=== PATIENT | female | born 1990 | race Caucasian/White ===

== ENCOUNTER 2020-02-27 06:06 | Emergency (ER) | payer OTHER, SELFPAY ==
[2020-02-27] VITALS (21 sets, daily range): BP systolic 103–137; BP diastolic 61–91; PULSE 67–115; RESP 15–24; TEMP 36.4; O2SAT 94–100; BMI 23.1
--- NOTE | 2020-02-27 06:24 | ED_ITS ---
HPI - Back Pain/Injury <Mago Schmitt MD - Last Filed: 03/15/20 07:32> General Chief Complaint: Back Pain/Injury Stated Complaint: new , pain right side back Time Seen by Provider: 02/27/20 06:14 Source: patient History of Present Illness HPI Narrative: 29yo presents with right sided flank to right lower quadrant pain. Approximately 2 weeks ago she started having some mild dysuria was concerned she was developing a UTI and began drinking quite a bit of water. Symptoms seem to demarco. One week ago she found out that she was and based on LMP is about 5 weeks currently. Over this last week she has had recurrent episodes of nausea and intermittent episodes of dysuria associated with dark brown urine with episodes of normal pain-free urination in between. At 2:00 a.m. she was woken from sleep with severe pain in the right flank. She states that she has had kidney stones before and will this pain is severe it is not as severe as prior renal colic has been. She denies fevers, chills, cough, chest pain, palpitations, diarrhea, skin rashes or headaches. Related Data Home Medications Medication Instructions Recorded Confirmed levothyroxine 100 mcg PO DAILY 02/29/20 02/29/20 Previous Rx's Medication Instructions Recorded oxycodone-acetaminophen [Percocet] 1 tab PO Q6H PRN #14 tab 02/27/20 acetaminophen 650 mg PO Q4HR PRN #14 tab 03/02/20 ondansetron HCl [Zofran] 4 mg PO Q8H #20 tab 03/02/20 oxycodone 5 mg PO Q6H PRN #20 cap 03/02/20 Allergies Allergy/AdvReac Type Severity Reaction Status Date / Time No Known Drug Allergies Allergy Verified 03/01/20 15:57 Review of Systems <Mago Schmitt MD - Last Filed: 03/15/20 07:32> Review of Systems Narrative: Remainder of review of systems including constitutional, ENT, c ardiovascular, respiratory, GI, , musculoskeletal, skin, neurologic and psychiatric systems reviewed and are unremarkable except as noted in HPI. Patient History <Mago Schmitt MD - Last Filed: 03/15/20 07:32> Medical History delivery delivered (Acute) Renal stones (Acute) Vaginal delivery (Acute) Surgical History delivery delivered (Acute) Social History household members: spouse and children Smoking Status: Never smoker alcohol intake: former Smoking Status: Never smoker Substance Use Type: does not use Exam <Mago Schmitt MD - Last Filed: 03/15/20 07:32> Narrative Exam Narrative: General: Healthy appearing, in moderate distress, lying on her left side massaging her right flank. Able to give a complete and coherent history. Well-nourished well-developed HEENT: Moist mucous membranes, normal sclera with reactive pupils, Respiratory: Lungs are clear to auscultation, no wheezing no rales no rhonchi. Full and symmetrical air movement Cardiac: Regular rate and rhythm no murmurs no bruits Abdomen: Soft mildly tender mid right side into the right lower quadrant without rebound or guarding good bowel tones, right flank pain Skin: Warm and dry, no rashes Neurologic: Grossly neurologically intact with no obvious asymmetries or abnormalities Extremities: No trauma, well perfused Psych: Cooperative, appropriate insight and affect Initial Vital Signs Initial Vital Signs: Vital Signs Temperature 97.6 F 02/27/20 06:16 Pulse Rate 115 H 02/27/20 06:16 Respiratory Rate 15 02/27/20 06:16 Blood Pressure 137/91 H 02/27/20 06:16 Pulse Oximetry 100 02/27/20 06:16 <Brandee Boyer DO - Last Filed: 02/27/20 16:28> Initial Vital Signs Initial Vital Signs: Vital Signs Temperature 97.6 F 02/27/20 06:16 Pulse Rate 115 H 02/27/20 06:16 Respiratory Rate 15 02/27/20 06:16 Blood Pressure 137/91 H 02/27/20 06:16 Pulse Oximetry 100 02/27/20 06:16 Course <Mago Schmitt MD - Last Filed: 03/15/20 07:32> Orders Ordered: Discontinued Medications Acetaminophen (Tylenol) 975 mg PO NOW ONE Stop: 02/27/20 07:54 Last Admin: 02/27/20 07:58 Dose: 975 mg Documented by: DANNI Hydromorphone HCl (Dilaudid) 0.5 mg IV NOW ONE Stop: 02/27/20 06:21 Last Admin: 02/27/20 06:31 Dose: 0.5 mg Documented by: DEANDRE Hydromorphone HCl (Dilaudid) 1 mg IV NOW ONE Stop: 02/27/20 06:46 Last Admin: 02/27/20 06:52 Dose: 1 mg Documented by: DEANDRE Hydromorphone HCl (Dilaudid) 1 mg IV NOW ONE Stop: 02/27/20 07:23 Last Admin: 02/27/20 07:30 Dose: 1 mg Documented by: DANNI Sodium Chloride (Normal Saline 0.9%) 1,000 mls @ 1,000 mls/hr IV BOLUS ONE Stop: 02/27/20 07:19 Last Infusion: 02/27/20 08:35 Dose: 0 mls/hr Documented by: Admin: 02/27/20 06:31 Dose: 1,000 mls/hr Documented by: DEANDRE Sodium Chloride (Normal Saline 0.9%) 1,000 mls @ 1,000 mls/hr IV BOLUS ONE Stop: 02/27/20 08:53 Last Admin: 02/27/20 10:11 Dose: Not Given Documented by: DANNI Metoclopramide HCl (Reglan) 10 mg IV NOW ONE Stop: 02/27/20 06:21 Last Admin: 02/27/20 06:30 Dose: 10 mg Documented by: DEANDRE Morphine Sulfate (Morphine) 4 mg IV NOW ONE Stop: 02/27/20 09:16 Last Admin: 02/27/20 09:32 Dose: 4 mg Documented by: DANNI Morphine Sulfate (Morphine) 4 mg IV NOW ONE Stop: 02/27/20 10:37 Last Admin: 02/27/20 10:46 Dose: 4 mg Documented by: DANNI Morphine Sulfate (Morphine) 4 mg IV NOW ONE Stop: 02/27/20 12:05 Last Admin: 02/27/20 12:26 Dose: 4 mg Documented by: SILVESTRE Morphine Sulfate (Morphine) 6 mg 0.1 mg/kg (6 mg) IV NOW ONE Stop: 02/27/20 13:14 Last Admin: 02/27/20 13:18 Dose: 6 mg Documented by: SILVESTRE Ondansetron HCl (Zofran) 4 mg IV NOW ONE Stop: 02/27/20 09:16 Last Admin: 02/27/20 09:31 Dose: 4 mg Documented by: DANNI Ondansetron HCl (Zofran) 4 mg IV NOW ONE Stop: 02/27/20 12:25 Last Admin: 02/27/20 12:26 Dose: 4 mg Documented by: SILVESTRE Vital Signs Vital signs: Vital Signs - 8 hr 02/27/20 09:20 02/27/20 09:39 02/27/20 09:40 Pulse Rate 72 75 76 Respiratory Rate 18 Blood Pressure 107/62 107/62 Pulse Oximetry 95 95 95 02/27/20 10:00 02/27/20 10:30 02/27/20 11:00 Pulse Rate 76 67 77 Respiratory Rate Blood Pressure Pulse Oximetry 96 96 99 02/27/20 11:30 02/27/20 12:00 02/27/20 12:30 Pulse Rate 81 70 81 Respiratory Rate Blood Pressure Pulse Oximetry 100 100 100 02/27/20 13:18 02/27/20 13:21 02/27/20 13:30 Pulse Rate 83 78 70 Respiratory Rate 17 Blood Pressure 103/66 116/68 109/63 Pulse Oximetry 99 100 94 02/27/20 14:00 Pulse Rate 75 Respiratory Rate Blood Pressure 107/65 Pulse Oximetry 99 <Brandee Boyer, - Last Filed: 02/27/20 16:28> Orders Ordered: Discontinued Medications Acetaminophen (Tylenol) 975 mg PO NOW ONE Stop: 02/27/20 07:54 Last Admin: 02/27/20 07:58 Dose: 975 mg Documented by: DANNI Hydromorphone HCl (Dilaudid) 0.5 mg IV NOW ONE Stop: 02/27/20 06:21 Last Admin: 02/27/20 06:31 Dose: 0.5 mg Documented by: DEANDRE Hydromorphone HCl (Dilaudid) 1 mg IV NOW ONE Stop: 02/27/20 06:46 Last Admin: 02/27/20 06:52 Dose: 1 mg Documented by: DEANDRE Hydromorphone HCl (Dilaudid) 1 mg IV NOW ONE Stop: 02/27/20 07:23 Last Admin: 02/27/20 07:30 Dose: 1 mg Documented by: DANNI Sodium Chloride (Normal Saline 0.9%) 1,000 mls @ 1,000 mls/hr IV BOLUS ONE Stop: 02/27/20 07:19 Last Infusion: 02/27/20 08:35 Dose: 0 mls/hr Documented by: Admin: 02/27/20 06:31 Dose: 1,000 mls/hr Documented by: DEANDRE Sodium Chloride (Normal Saline 0.9%) 1,000 mls @ 1,000 mls/hr IV BOLUS ONE Stop: 02/27/20 08:53 Last Admin: 02/27/20 10:11 Dose: Not Given Documented by: DANNI Metoclopramide HCl (Reglan) 10 mg IV NOW ONE Stop: 02/27/20 06:21 Last Admin: 02/27/20 06:30 Dose: 10 mg Documented by: DEANDRE Morphine Sulfate (Morphine) 4 mg IV NOW ONE Stop: 02/27/20 09:16 Last Admin: 02/27/20 09:32 Dose: 4 mg Documented by: DANNI Morphine Sulfate (Morphine) 4 mg IV NOW ONE Stop: 02/27/20 10:37 Last Admin: 02/27/20 10:46 Dose: 4 mg Documented by: DANNI Morphine Sulfate (Morphine) 4 mg IV NOW ONE Stop: 02/27/20 12:05 Last Admin: 02/27/20 12:26 Dose: 4 mg Documented by: SILVESTRE Morphine Sulfate (Morphine) 6 mg 0.1 mg/kg (6 mg) IV NOW ONE Stop: 02/27/20 13:14 Last Admin: 02/27/20 13:18 Dose: 6 mg Documented by: SILVESTRE Ondansetron HCl (Zofran) 4 mg IV NOW ONE Stop: 02/27/20 09:16 Last Admin: 02/27/20 09:31 Dose: 4 mg Documented by: DANNI Ondansetron HCl (Zofran) 4 mg IV NOW ONE Stop: 02/27/20 12:25 Last Admin: 02/27/20 12:26 Dose: 4 mg Documented by: SILVESTRE Consultations Consultation #1: Dr. Jones MALCOLM up dated on patient symptoms requesting bedside evaluation. She will be down shortly Time: 10:31 Vital Signs Vital signs: Vital Signs - 8 hr 02/27/20 09:20 02/27/20 09:39 02/27/20 09:40 Pulse Rate 72 75 76 Respiratory Rate 18 Blood Pressure 107/62 107/62 Pulse Oximetry 95 95 95 02/27/20 10:00 02/27/20 10:30 02/27/20 11:00 Pulse Rate 76 67 77 Respiratory Rate Blood Pressure Pulse Oximetry 96 96 99 02/27/20 11:30 02/27/20 12:00 02/27/20 12:30 Pulse Rate 81 70 81 Respiratory Rate Blood Pressure Pulse Oximetry 100 100 100 02/27/20 13:18 02/27/20 13:21 02/27/20 13:30 Pulse Rate 83 78 70 Respiratory Rate 17 Blood Pressure 103/66 116/68 109/63 Pulse Oximetry 99 100 94 02/27/20 14:00 Pulse Rate 75 Respiratory Rate Blood Pressure 107/65 Pulse Oximetry 99 MDM - Back Pain/Injury <Mago Schmitt MD - Last Filed: 03/15/20 07:32> Lab Data Result diagrams: 02/27/20 06:30 02/27/20 06:30 Labs: Lab Results 02/27/20 02/27/20 02/27/20 Range/Units 06:30 06:30 06:30 WBC 6.2 (4.5-11.0) X10^3/uL RBC 4.43 (4.0-5.2) X10^6/uL Hgb 13.5 (12.0-16.0) g/dL Hct 40.3 (36-46) % MCV 90.9 (80-100) fL MCH 30.6 (26-34) PG MCHC 33.6 (30-36) % RDW 13.1 (11.6-14.8) % Plt Count 213 (150-400) X10^3/uL Neut % (Auto) 55.2 (50-75) % Lymph % (Auto) 35.3 (25-40) % [place] % (Auto) 6.2 (3-14) % Eos % (Auto) 2.6 (2-4) % Baso % (Auto) 0.7 (0-2) % Neut # (Auto) 3400 (8925-3456) /uL Lymph # (Auto) 2200 (4324-8486) /uL [place] # (Auto) 400 (0-900) /uL Eos # (Auto) 200 (0-450) /uL Baso # (Auto) 0 (0-100) /uL Sodium 136 L (137-145) mmol/L Potassium 3.6 (3.4-5.1) mmol/L Chloride 108 H (98-107) mmol/L Carbon Dioxide 20 L (22-32) mmol/L BUN 9 (7-17) mg/dL Creatinine 0.58 (0.52-1.04) mg/dL Estimated GFR > 60.0 (>60) mL/min BUN/Creatinine Ratio 15.5 (6-22) Glucose 91 (70-100) mg/dL Calcium 9.6 (8.4-10.2) mg/dL Total Bilirubin 0.4 (0.2-1.3) mg/dL AST 20 (14-36) IU/L ALT 9 (<35) IU/L Alkaline Phosphatase 33 L (38-126) U/L Total Protein 6.8 (6.3-8.2) g/dL Albumin 4.2 (3.5-5.0) g/dL Globulin 2.6 (1.7-4.1) g/dL Albumin/Globulin Ratio 1.6 (1.0-2.8) Lipase (23-300) U/L HCG, Quant 946.5 mIU/mL Blood Type 02/27/20 02/27/20 Range/Units 06:30 14:03 WBC (4.5-11.0) X10^3/uL RBC (4.0-5.2) X10^6/uL Hgb (12.0-16.0) g/dL Hct (36-46) % MCV (80-100) fL MCH (26-34) PG MCHC (30-36) % RDW (11.6-14.8) % Plt Count (150-400) X10^3/uL Neut % (Auto) (50-75) % Lymph % (Auto) (25-40) % [place] % (Auto) (3-14) % Eos % (Auto) (2-4) % Baso % (Auto) (0-2) % Neut # (Auto) (8855-9581) /uL Lymph # (Auto) (1900-7110) /uL [place] # (Auto) (0-900) /uL Eos # (Auto) (0-450) /uL Baso # (Auto) (0-100) /uL Sodium (137-145) mmol/L Potassium (3.4-5.1) mmol/L Chloride (98-107) mmol/L Carbon Dioxide (22-32) mmol/L BUN (7-17) mg/dL Creatinine (0.52-1.04) mg/dL Estimated GFR (>60) mL/min BUN/Creatinine Ratio (6-22) Glucose (70-100) mg/dL Calcium (8.4-10.2) mg/dL Total Bilirubin (0.2-1.3) mg/dL AST (14-36) IU/L ALT (<35) IU/L Alkaline Phosphatase (38-126) U/L Total Protein (6.3-8.2) g/dL Albumin (3.5-5.0) g/dL Globulin (1.7-4.1) g/dL Albumin/Globulin Ratio (1.0-2.8) Lipase 65 (23-300) U/L HCG, Quant mIU/mL Blood Type O Positive Urine Dip Bedside Urine Glucose Negative Bedside Urine Bilirubin - Negative Bedside Urine Ketone + 15 Urine Specific [place] 1.010 Bedside Urine Occult Blood - Negative Bedside Urine pH 8.5 Bedside Urine Protein - Negative Bedside Urine Urobilinogen - Negative Bedside Urine Nitrite - Negative Bedside Urine Leukocytes - Negative Esterase <Brandee Boyer, - Last Filed: 02/27/20 16:28> Lab Data Attestation: I reviewed the patient's lab results. Labs: Lab Results 02/27/20 02/27/20 02/27/20 Range/Units 06:30 06:30 06:30 WBC 6.2 (4.5-11.0) X10^3/uL RBC 4.43 (4.0-5.2) X10^6/uL Hgb 13.5 (12.0-16.0) g/dL Hct 40.3 (36-46) % MCV 90.9 (80-100) fL MCH 30.6 (26-34) PG MCHC 33.6 (30-36) % RDW 13.1 (11.6-14.8) % Plt Count 213 (150-400) X10^3/uL Neut % (Auto) 55.2 (50-75) % Lymph % (Auto) 35.3 (25-40) % [place] % (Auto) 6.2 (3-14) % Eos % (Auto) 2.6 (2-4) % Baso % (Auto) 0.7 (0-2) % Neut # (Auto) 3400 (0406-9146) /uL Lymph # (Auto) 2200 (5258-0227) /uL [place] # (Auto) 400 (0-900) /uL Eos # (Auto) 200 (0-450) /uL Baso # (Auto) 0 (0-100) /uL Sodium 136 L (137-145) mmol/L Potassium 3.6 (3.4-5.1) mmol/L Chloride 108 H (98-107) mmol/L Carbon Dioxide 20 L (22-32) mmol/L BUN 9 (7-17) mg/dL Creatinine 0.58 (0.52-1.04) mg/dL Estimated GFR > 60.0 (>60) mL/min BUN/Creatinine Ratio 15.5 (6-22) Glucose 91 (70-100) mg/dL Calcium 9.6 (8.4-10.2) mg/dL Total Bilirubin 0.4 (0.2-1.3) mg/dL AST 20 (14-36) IU/L ALT 9 (<35) IU/L Alkaline Phosphatase 33 L (38-126) U/L Total Protein 6.8 (6.3-8.2) g/dL Albumin 4.2 (3.5-5.0) g/dL Globulin 2.6 (1.7-4.1) g/dL Albumin/Globulin Ratio 1.6 (1.0-2.8) Lipase (23-300) U/L HCG, Quant 946.5 mIU/mL Blood Type 02/27/20 02/27/20 Range/Units 06:30 14:03 WBC (4.5-11.0) X10^3/uL RBC (4.0-5.2) X10^6/uL Hgb (12.0-16.0) g/dL Hct (36-46) % MCV (80-100) fL MCH (26-34) PG MCHC (30-36) % RDW (11.6-14.8) % Plt Count (150-400) X10^3/uL Neut % (Auto) (50-75) % Lymph % (Auto) (25-40) % [place] % (Auto) (3-14) % Eos % (Auto) (2-4) % Baso % (Auto) (0-2) % Neut # (Auto) (4969-4041) /uL Lymph # (Auto) (5934-8233) /uL [place] # (Auto) (0-900) /uL Eos # (Auto) (0-450) /uL Baso # (Auto) (0-100) /uL Sodium (137-145) mmol/L Potassium (3.4-5.1) mmol/L Chloride (98-107) mmol/L Carbon Dioxide (22-32) mmol/L BUN (7-17) mg/dL Creatinine (0.52-1.04) mg/dL Estimated GFR (>60) mL/min BUN/Creatinine Ratio (6-22) Glucose (70-100) mg/dL Calcium (8.4-10.2) mg/dL Total Bilirubin (0.2-1.3) mg/dL AST (14-36) IU/L ALT (<35) IU/L Alkaline Phosphatase (38-126) U/L Total Protein (6.3-8.2) g/dL Albumin (3.5-5.0) g/dL Globulin (1.7-4.1) g/dL Albumin/Globulin Ratio (1.0-2.8) Lipase 65 (23-300) U/L HCG, Quant mIU/mL Blood Type O Positive Urine Dip Bedside Urine Glucose Negative Bedside Urine Bilirubin - Negative Bedside Urine Ketone + 15 Urine Specific [place] 1.010 Bedside Urine Occult Blood - Negative Bedside Urine pH 8.5 Bedside Urine Protein - Negative Bedside Urine Urobilinogen - Negative Bedside Urine Nitrite - Negative Bedside Urine Leukocytes - Negative Esterase Imaging Data US - OB: Radiologist's Impression: PROCEDURE: US PELVIC COMPLETE INDICATIONS: R flank, RLQ pain. suspected 5 week pg, h/o renal stones TECHNIQUE: Real-time scanning was performed of the pelvic organs, with image documentation. Additional endovaginal scanning was necessary due to incomplete visualization of the adnexal and endometrial structures by transabdominal scanning. COMPARISON: None. FINDINGS: Transabdominal scanning: Anteverted uterus with fundal fluid collection. The uterus measures 9.7 x 5.0 x 6.6 cm. Endovaginal scanning: Uterus: There is a tiny rounded intrauterine fluid collection measuring 4.1 mm which would correspond to of five week one day gestation. There may be a yolk sac pre sent. A pole was not seen. There is, however a large surrounding subchorionic hemorrhage encompassing the entire sac circumference. The cervix appears grossly closed. Ovaries: The right ovary measures 3.6 x 2.4 x 3.8 cm and contains a 2.7 cm peripherally vascular dominant follicle, likely a corpus luteum. The left ovary measures 2.8 x 2.2 x 2.1 cm and has a normal echotexture. IMPRESSION: 1. There is a tiny intrauterine fluid collection which would correspond to a five week one day gestation, however a pole is not identified. 2. Large subchorionic hemorrhage surrounding the anterior gestational sac. 3. Right ovarian corpus luteum. Dictated by: Judy Bardales M.D. on 02/27/2020 at 8:07 Approved by: Judy Bardales M.D. on 02/27/2020 at 8:16 US - abdomen: Radiologist's Impression: PROCEDURE: US ABDOMEN LIMITED INDICATIONS: RUQ PAIN TECHNIQUE: Real-time focused scanning was performed of the abdomen, with image documentation. COMPARISON: MR, MR ABD WO CON, 02/28/2016, 10:14. [facility], US RENAL, 02/29/2016, 9:45. FINDINGS: Normal appearance and size of the liver, normal gallbladder appearance. Adjacent bile ducts are normal in caliber, the pancreas visualized appears normal. No hydronephrosis or nephrolithiasis seen. IMPRESSION: Normal limited right upper quadrant ultrasound. Dictated by: Antione Castellon M.D. on 02/27/2020 at 9:43 MR Abdomen: Radiologist's Impression: PROCEDURE: MR ABDOMEN PELVIS WO CON COMPARISON: [facility], , US PELVIC COMPLETE, 02/27/2020, 8:22. INDICATIONS: right sided pain 5 weeks FINDINGS: There is a normal, retrocecal appendix measuring up to 6 mm without periappendiceal fat stranding or fluid. Small amount of simple fluid is present throughout the low pelvis. Dominant follicle is present on the right ovary measuring 1.9 cm. The left ovary is normal. There is thickening of the uterine endometrium, slight distension of the endometrial cavity with proteinaceous fluid, and a probable tiny intrauterine gestational sac. The solid organs of the upper abdomen demonstrate normal morphology and signal. The gallbladder and biliary system have a normal appearance. The ureters are nondilated. The stomach and bowel loops are normal. No areas of intraperitoneal inflammation. The vasculature is normal caliber. No lymphadenopathy. The urinary bladder is normal in the distal ureters are nondistended. There is normal marrow signal. Incidental note made of small posterior disc protrusion at the L5-S1 level. IMPRESSION: 1. Normal appendix. 2. Probable intrauterine gestational sac with a moderate amount of surrounding proteinaceous fluid. Findings consistent with threatened early . 3. Physiologic pelvic fluid and right ovarian corpus luteum. 4. No evidence of other acute process in the abdomen or pelvis identified. Dictated by: Judy Bardales M.D. on 02/27/2020 at 12:08 Approved by: Judy Bardales M.D. on 02/27/2020 at 12:26 [facility] Narrative Medical decision making narrative: Patient signed out to me by Dr. Carter I have seen evaluated patient myself. She appears quite uncomfortable. She is tender in the right upper quadrant with positive Mcdonald sign and also right flank area. She is given another mg of Dilaudid but it does not seem to help with her pain. She is given Tylenol. Ultrasound still pending. Pelvic ultrasound shows a large chorionic hemorrhage. However she does have some right upper quadrant pain and right flank pain and pain seems out of proportion she has had multiple doses of narcotic medications and it is still on controlled. Have discussed case with OBGYN Dr. gutierres who has been into the ED to see and evaluate patient. She states that there may be impending miscarriage which is causing significant pain however pain in the right flank and right upper quadrant is abnormal. Initially patient was hesitant to get MR, consent at [facility] is outdated and will be changed it states that there is risk due to heat in the 1st trimester so she did not want the MRI. However multiple studies have indicated that it is safe. Concern is patient is having significant pain not all consistent with subchorionic hemorrhage. Questionable appendicitis however she has no leukocytosis or fever in this seems to have gotten worse suddenly, story does not quite fit acute appendicitis. She has no hydronephrosis on her ultrasound. MRI returns with no appendicitis or other abnormality. Pain is likely from large subchorionic hemorrhage as previously discussed. I have given the patient option of staying in the hospital for pain control due to the new says the pain medications she received however she would like to go home. She is likely to have a large amount of bleeding once spotting starts. I discussed all findings with the patient and , Education has been performed regarding treatment plan, diagnosis, warning signs and symptoms and all concerns have been addressed. Verbally agree with and understood all of the above. Discharge Plan Departure Patient Disposition: Home Clinical Impression: Subchorionic hemorrhage in first trimester Qualifiers: Fetus number: single or unspecified fetus Qualified Code(s): O41.8X10 - Other specified disorders of amniotic fluid and membranes, first trimester, not applicable or unspecified Discharge Date/Time: 02/27/20 14:29 Instructions: DI for Abdominal Pain -- Early Activity Restrictions/Additional Instructions: *You have been diagnosed with large subchorionic hemorrhage *What to do: You are at risk to miscarry and have quite a large amount of bleeding. Try our best to manage pain at home may try heating pad or ice also position may help. *Continue to take medications as directed Percocet 1 tablet every 4 hours or 2 tablets every 6 hours *Follow up with your primary care provider in 2-3 days *Return to ER if you should have pain not controlled persistent vomiting, fever heavy bleeding more than 1 pad an hour or any new, worsening or concerning symptoms CONTROLLED SUBSTANCE DISCHARGE (Narcotoic/benzodiazepine/Flexeril/Phenergan) 1. You have been prescribed narcotic medications, it does have acetaminophen/Tylenol/paracetamol in it so do not take extra Tylenol or Tylenol containing products TRAMADOL DOES NOT CONTAIN TYLENOL 2. Please understand that we cannot provide further refills of narcotics, benzodiazepines or controlled substances through the ED and her pain management will need to be through your provider. 3. While on these medications you cannot drive or operate heavy machinery. 4. You cannot sign legal documents or perform any duties such as this. 5. As long as you're taking opiate pain medications he should also be taking a stool softener such as Colace, Dulcolax, MiraLAX or prune juice, to help avoid constipation. Prescriptions: New oxycodone-acetaminophen [Percocet] 7.5-325 mg tablet 1 tab PO Q6H PRN (Reason: pain) Qty: 14 RF: 0 No Action levothyroxine 100 mcg tablet 100 mcg PO DAILY RF: 0 acetaminophen 325 mg Tablet 650 mg PO Q4HR PRN (Reason: Fever/Mild Pain (1-3)) Qty: 14 RF: 0 oxycodone 5 mg capsule 5 mg PO Q6H PRN (Reason: pain) Qty: 20 RF: 0 ondansetron HCl [Zofran] 4 mg tablet 4 mg PO Q8H Qty: 20 RF: 0 Referrals: Linnea Gutierres MD [Physician] -
[2020-02-27] MEDS: METOCLOPRAMIDE 10 MG/2 ML INJ IV (06:30)
[2020-02-27] MEDS: HYDROMORPHONE 0.5 MG INJ IV (06:31)
[2020-02-27] MEDS: SODIUM CHLORIDE 0.9% 1,000 ML 1000 ML IV ×2 (06:31→08:36)
--- NOTE | 2020-02-27 06:33 | DI.US.S_ITS ---
PROCEDURE: US ABDOMEN LIMITED INDICATIONS: RUQ PAIN TECHNIQUE: Real-time focused scanning was performed of the abdomen, with image documentation. COMPARISON: MR, MR ABD WO CON, 02/28/2016, 10:14. [facility], US, US RENAL, 02/29/2016, 9:45. FINDINGS: Normal appearance and size of the liver, normal gallbladder appearance. Adjacent bile ducts are normal in caliber, the pancreas visualized appears normal. No hydronephrosis or nephrolithiasis seen. IMPRESSION: Normal limited right upper quadrant ultrasound. Dictated by: Antione Castellon M.D. on 02/27/2020 at 9:43 Approved by: Antione Castellon M.D. on 02/27/2020 at 9:45
--- NOTE | 2020-02-27 06:33 | DI.US.S_ITS ---
PROCEDURE: US PELVIC COMPLETE INDICATIONS: R flank, RLQ pain. suspected 5 week pg, h/o renal stones TECHNIQUE: Real-time scanning was performed of the pelvic organs, with image documentation. Additional endovaginal scanning was necessary due to incomplete visualization of the adnexal and endometrial structures by transabdominal scanning. COMPARISON: None. FINDINGS: Transabdominal scanning: Anteverted uterus with fundal fluid collection. The uterus measures 9.7 x 5.0 x 6.6 cm. Endovaginal scanning: Uterus: There is a tiny rounded intrauterine fluid collection measuring 4.1 mm which would correspond to of five week one day gestation. There may be a yolk sac present. A pole was not seen. There is, however a large surrounding subchorionic hemorrhage encompassing the entire sac circumference. The cervix appears grossly closed. Ovaries: The right ovary measures 3.6 x 2.4 x 3.8 cm and contains a 2.7 cm peripherally vascular dominant follicle, likely a corpus luteum. The left ovary measures 2.8 x 2.2 x 2.1 cm and has a normal echotexture. IMPRESSION: 1. There is a tiny intrauterine fluid collection which would correspond to a five week one day gestation, however a pole is not identified. 2. Large subchorionic hemorrhage surrounding the anterior gestational sac. 3. Right ovarian corpus luteum. Dictated by: Judy Bardales M.D. on 02/27/2020 at 8:07 Approved by: Judy Bardales M.D. on 02/27/2020 at 8:16
[2020-02-27 06:37] LABS: Add Manual Diff / Slide Review NO; Basophils Absolute Auto 0 /uL (0-100); Basophils Percent Auto 0.7 % (0-2); Eosinophils Absolute Auto 200 /uL (0-450); Eosinophils Percent Auto 2.6 % (2-4); Hematocrit 40.3 % (36-46); Hemoglobin 13.5 g/dL (12.0-16.0); Lymphocytes Absolute Auto 2200 /uL (1100-4500); Lymphocytes Percent Auto 35.3 % (25-40); Mean Corpuscular HGB Conc 33.6 % (30-36); Mean Corpuscular Hemoglobin 30.6 PG (26-34); Mean Corpuscular Volume 90.9 fL (80-100); Monocytes Absolute Auto 400 /uL (0-900); Monocytes Percent Auto 6.2 % (3-14); Neutrophils Absolute Auto 3400 /uL (1500-7000); Neutrophils Percent Auto 55.2 % (50-75); Platelet Count 213 X10^3/uL (150-400); Red Blood Cell Count 4.43 X10^6/uL (4.0-5.2); Red Cell Distribution Width 13.1 % (11.6-14.8); White Blood Cell Count 6.2 X10^3/uL (4.5-11.0)
[2020-02-27 06:46] LABS: Alanine Aminotransferase 9 IU/L (<35); Albumin 4.2 g/dL (3.5-5.0); Albumin Globulin Ratio 1.6 (1.0-2.8); Alkaline Phosphatase 33 U/L (38-126); Aspartate Aminotransferase 20 IU/L (14-36); BUN Creatinine Ratio 15.5 (6-22); Bilirubin Total 0.4 mg/dL (0.2-1.3); Blood Urea Nitrogen 9 mg/dL (7-17); Calcium 9.6 mg/dL (8.4-10.2); Carbon Dioxide 20 mmol/L (22-32); Chloride 108 mmol/L (98-107); Estimated Glomerular Filt Rate > 60.0 mL/min (>60); Globulin 2.6 g/dL (1.7-4.1); Glucose 91 mg/dL (70-100); HEMOLYSIS < 15 (0-50); Potassium 3.6 mmol/L (3.4-5.1); Sodium 136 mmol/L (137-145); Total Protein 6.8 g/dL (6.3-8.2)
[2020-02-27] MEDS: HYDROMORPHONE 1 MG INJ IV ×2 (06:52→07:30)
[2020-02-27 07:03] LABS: HCG Quantitative /Beta subunit 946.5 mIU/mL
[2020-02-27] MEDS: ACETAMINOPHEN 325 MG TABLET 975 MG PO (07:58)
[2020-02-27 08:04] LABS: Lipase 65 U/L (23-300)
[2020-02-27] MEDS: ONDANSETRON 4 MG/2 ML INJ IV ×2 (09:31→12:26)
[2020-02-27] MEDS: MORPHINE 4 MG/ML INJ IV ×3 (09:32→12:26)
--- NOTE | 2020-02-27 10:05 | DI.MRI.S_ITS ---
PROCEDURE: MR ABDOMEN PELVIS WO CON COMPARISON: [facility], , US PELVIC COMPLETE, 02/27/2020, 8:22. INDICATIONS: right sided pain 5 weeks FINDINGS: There is a normal, retrocecal appendix measuring up to 6 mm without periappendiceal fat stranding or fluid. Small amount of simple fluid is present throughout the low pelvis. Dominant follicle is present on the right ovary measuring 1.9 cm. The left ovary is normal. There is thickening of the uterine endometrium, slight distension of the endometrial cavity with proteinaceous fluid, and a probable tiny intrauterine gestational sac. The solid organs of the upper abdomen demonstrate normal morphology and signal. The gallbladder and biliary system have a normal appearance. The ureters are nondilated. The stomach and bowel loops are normal. No areas of intraperitoneal inflammation. The vasculature is normal caliber. No lymphadenopathy. The urinary bladder is normal in the distal ureters are nondistended. There is normal marrow signal. Incidental note made of small posterior disc protrusion at the L5-S1 level. IMPRESSION: 1. Normal appendix. 2. Probable intrauterine gestational sac with a moderate amount of surrounding proteinaceous fluid. Findings consistent with threatened early . 3. Physiologic pelvic fluid and right ovarian corpus luteum. 4. No evidence of other acute process in the abdomen or pelvis identified. Dictated by: Judy Bardales M.D. on 02/27/2020 at 12:08 Approved by: Judy Bardales M.D. on 02/27/2020 at 12:26
--- NOTE | 2020-02-27 11:32 | PC.NURSE ---
straight cath at 0930 and 300 out. Urine dip POC negative
--- NOTE | 2020-02-27 11:42 | PM.CN ---
History of Present Illness Consult details Date Patient Seen: 02/27/20 Time Patient Seen: 11:00 Chief complaint: new , pain right side back Reason for consult: pelvic/right flank pain Requesting provider: Brandee Boyer Narrative: This patient is a 29yo @ approx 5 weeks gestation by LMP, presenting with new onset and severe right flank pain overnight. The patient reports mild suprapubic cramping intermittently since she discovered that she was last week, which did not radiate and which resolved with PO hydration. She reports that at 2AM last night, she was awoken by severe, sharp right flank and RUQ pain, radiating down her side and sometimes all the way to her pelvis. She reports that there is now a more dull, cramping component in the pelvis. The pain waxes and wanes slightly but is largely constant, is worsened by movement, and has been accompanied by chills, nausea and emesis x2. She denies vaginal bleeding or abnormal discharge, diarrhea, constipation, SOB, chest pain, fevers, or any neurologic complaints. 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 Her obstetric history is significant for 3x NSVDs at term after uncomplicated pregnancies, and 1 CS at term. Her medical history is significant for kidney stones, but she denies any other contributory medical, surgical, family, or social history. Meds Home Medications and Allergies Home Medications Medication Instructions Recorded Confirmed Type oxycodone-acetaminophen [Percocet] 1 tab PO Q6H PRN #14 tab 02/27/20 Rx Allergies Allergy/AdvReac Type Severity Reaction Status Date / Time No Known Drug Allergies Allergy Verified 02/27/20 06:40 Review of Systems Constitutional Constitutional: Reports chills Cardiovascular Cardiovascular: Reports system reviewed and no additional complaints, except as documented Respiratory Respiratory: Reports system reviewed and no additional complaints, except as documented Gastrointestinal Gastrointestinal: Reports as per HPI Genitourinary Genitourinary: Reports as per HPI Musculoskeletal Musculoskeletal: Reports as per HPI Hematologic/Lymphatic Hematologic/Lymphatic: Reports as per HPI Exam Vital Signs (past 8 hours): - 02/27/20 06:16 02/27/20 06:34 02/27/20 06:38 Temperature 97.6 F Pulse Rate 115 H 105 H 90 Respiratory Rate 15 Blood Pressure 137/91 H 112/61 Pulse Oximetry 100 100 100 02/27/20 07:00 02/27/20 07:30 02/27/20 07:35 Temperature Pulse Rate 86 87 87 Respiratory Rate Blood Pressure 114/82 Pulse Oximetry 99 99 100 02/27/20 07:38 02/27/20 08:00 02/27/20 09:20 Temperature Pulse Rate 85 85 72 Respiratory Rate 24 18 Blood Pressure 114/82 107/73 107/62 Pulse Oximetry 100 99 95 02/27/20 09:39 02/27/20 09:40 02/27/20 10:00 Temperature Pulse Rate 75 76 76 Respiratory Rate Blood Pressure 107/62 Pulse Oximetry 95 95 96 02/27/20 10:30 02/27/20 11:00 Temperature Pulse Rate 67 77 Respiratory Rate Blood Pressure Pulse Oximetry 96 99 Oxygen Delivery Method Room Air Const General: cooperative, well developed and in distress Orientation: alert, awake and oriented x3 GI Inspection: scar (well healed LTCS scar) Palpation: soft, guarding (voluntary guarding throughout) and tender (tender throughout abdomen) Other: bimanual exam deferred as no vaginal bleeding Objective Labs Result Diagrams: 02/27/20 06:30 02/27/20 06:30 Labs: Laboratory Results - last 24 hr 02/27/20 02/27/20 02/27/20 06:30 06:30 06:30 WBC 6.2 RBC 4.43 Hgb 13.5 Hct 40.3 MCV 90.9 MCH 30.6 MCHC 33.6 RDW 13.1 Plt Count 213 Neut % (Auto) 55.2 Lymph % (Auto) 35.3 [place] % (Auto) 6.2 Eos % (Auto) 2.6 Baso % (Auto) 0.7 Neut # (Auto) 3400 Lymph # (Auto) 2200 [place] # (Auto) 400 Eos # (Auto) 200 Baso # (Auto) 0 Sodium 136 L Potassium 3.6 Chloride 108 H Carbon Dioxide 20 L BUN 9 Creatinine 0.58 Estimated GFR > 60.0 BUN/Creatinine Ratio 15.5 Glucose 91 Calcium 9.6 Total Bilirubin 0.4 AST 20 ALT 9 Alkaline Phosphatase 33 L Total Protein 6.8 Albumin 4.2 Globulin 2.6 Albumin/Globulin Ratio 1.6 Lipase HCG, Quant 946.5 08/07/20 06:30 WBC RBC Hgb Hct MCV MCH MCHC RDW Plt Count Neut % (Auto) Lymph % (Auto) [place] % (Auto) Eos % (Auto) Baso % (Auto) Neut # (Auto) Lymph # (Auto) [place] # (Auto) Eos # (Auto) Baso # (Auto) Sodium Potassium Chloride Carbon Dioxide BUN Creatinine Estimated GFR BUN/Creatinine Ratio Glucose Calcium Total Bilirubin AST ALT Alkaline Phosphatase Total Protein Albumin Globulin Albumin/Globulin Ratio Lipase 65 HCG, Quant Assessment & Plan Assessment & Plan narrative: This patient presents to the ER for evaluation for right flank pain, in the setting of early with threatened miscarriage. The patient has had suprapubic cramping and reports that her flank pain is radiating to the suprapubic area, but on exam is most tender in the right flank and indicates that this is where the pain is worst. She has a corpus luteum cyst with no signs or symptoms consistent with ovarian torsion, has no other ovarian cysts or uterine fibroids, and has an intrauterine with a small the misshapen yolk sac. Pain from a threatened miscarriage usually presents with severe suprapubic or low back cramping, but not usually sharp RUQ or flank pain. The patient is being further investigated by Dr. Paulino for cholelithiasis, appendicitis, or nephrolithiasis. The large subchorionic hematoma, misshapen yolk sac, and low beta HCG for the ultrasound findings are concerning for incipient miscarriage, and this was discussed with the patient and her partner. This is a surprise but greatly desired , and we discussed the subchorionic hematomas increased risk of miscarriage but that some pregnancies do go on to develop normally. We discussed precautions for return including fevers and chills, severe pain, or bleeding soaking more than 2 pads an hour for 2 hours, and that she should follow up within the week in clinic either here or wherever she plans to establish obstetric care. The patient and her partner vocalized understanding. - Recommend confirming patient's blood type and administering Rhogam if indicated - Patient counselled on ELIZABETH and miscarriage precautions - Recommend patient follow up in clinic in 1 week for viability scan, or sooner if indicated.
[2020-02-27] MEDS: MORPHINE 4 MG/ML INJ 6 MG IV (13:18)
== END 2020-02-27 14:29 | disposition home or self-care (01) ==
PROVIDERS: Emergency Medicine; Emergency Provider Emergency Medicine
DX: O41.8X10 Other specified disorders of amniotic fluid and membranes, first trimester, not applicable or unspecified (principal); R30.0 Dysuria; Z3A.01 Less than 8 weeks gestation of pregnancy
CPT/HCPCS: 36415; 72195; 76705; 76817; 76856; 80053; 81003; 83690; 84702; 85025; 86900; 86901; 96361; 96374; 96375; 96376; 99285; J1170; J2270; J2405; J2765

== ENCOUNTER 2020-02-29 22:03 | Observation (INO) | payer OTHER, SELFPAY ==
--- NOTE | 2020-02-29 22:41 | ED.ABDPAIN ---
HPI - Abdominal Pain General Chief Complaint: Abdominal Pain Stated Complaint: stomach pain Time Seen by Provider: 02/29/20 22:05 Source: patient and family Mode of arrival: Ambulatory Limitations: no limitations History of Present Illness HPI narrative: 29F nonsmoker is at 5 weeks with return visit to evaluate severe RLQ pain. She was here a few days ago and had thorough evaluation including pelvic US and bedside evaluation by OB. US noted corpus luteum cyst and possible subchorionic hemorrhage. She was discharged and returns with worsening RLQ pain and nausea with vomiting at home. No fever or chills. Pain is much worse with motion and improves. She denies any vaginal bleeding or discharge. Her pain is persistent. She is clearly in tremendous pain MD complaint: abdominal pain Pain Consistency: constant Related Data Home Medications Medication Instructions Recorded Confirmed levothyroxine 100 mcg PO DAILY 02/29/20 02/29/20 Previous Rx's Medication Instructions Recorded oxycodone-acetaminophen [Percocet] 1 tab PO Q6H PRN #14 tab 02/27/20 Allergies Allergy/AdvReac Type Severity Reaction Status Date / Time No Known Drug Allergies Allergy Verified 02/29/20 22:45 Review of Systems Constitutional Constitutional: Denies chills, Denies fatigue, Denies fever(s), Denies frequent falls, Denies lethargy and Denies weakness Eyes Eyes: Denies change in vision, Denies eye discharge, Denies irritation and Denies loss of vision ENT Ears, Nose, Mouth, and Throat: Denies change in voice, Denies dizziness, Denies neck pain, Denies sore throat and Denies throat swelling Cardiovascular Cardiovascular: Denies chest pain, Denies irregular heart rhythm, Denies lightheadedness, Denies palpitations, Denies dyspnea, Denies dyspnea on exertion and Denies orthopnea Respiratory Respiratory: Denies cough, Denies dyspnea, Denies dyspnea on exertion and Denies wheezing Gastrointestinal Gastrointestinal: Reports abdominal pain, Denies change in bowel habits, Denies diarrhea, Reports nausea and Reports vomiting Musculoskeletal Musculoskeletal: Denies neck pain and Denies numbness Integumentary/Breasts Skin/Breast: Denies pruritus, Denies erythema, Denies rash and Denies wounds Neurologic Neurologic: Denies behavioral changes, Denies confusion, Denies dizziness, Denies frequent falls, Denies loss of vision, Denies numbness and Denies weakness Psychiatric Psychiatric: Denies anxiety, Denies behavioral changes, Denies confusion, Denies depression, Denies homicidal ideation and Denies suicidal ideation Endocrine Endocrine: Denies fatigue, Denies flushing and Denies palpitations Hematologic/Lymphatic Hematologic/Lymphatic: Denies easy bruising Allergic/Immunologic Allergic/Immunologic: Denies urticaria, Denies throat swelling and Denies wheezing Patient History Medical History Renal stones (Acute) Vaginal delivery (Acute) Surgical History delivery delivered (Acute) Social History Smoking Status: Never smoker Smoking Status: Never smoker Substance Use Type: does not use Exam Narrative Exam Narrative: GENERAL: [29] year old patient appears stated age. Well-nourished, well-developed patient, in mild distress. HEAD: Atraumatic. Normocephalic. EYES: Pupils equal round and reactive. Extraocular motions intact. No scleral icterus. No injection or drainage. ENT: Nose without bleeding, purulent drainage. Throat without erythema, tonsillar hypertrophy or exudate. Airway patent. NECK: Trachea midline. Non tender CARDIOVASCULAR: Regular rate and rhythm without murmurs, gallops, or rubs. RESPIRATORY: Clear to auscultation. Breath sounds equal bilaterally. No wheezes, rales, or rhonchi. GASTROINTESTINAL: Abdomen soft, tender in right lower quadrant, along superior pelvic rim, nondistended. EXTREMITIES: No edema or joint tenderness. BACK: Nontender without deformity or crepitance. No flank tenderness. NEURO: AOx3. SKIN: No rash or erythema of visible areas Initial Vital Signs Initial Vital Signs: Vital Signs Temperature 98.7 F 02/29/20 22:42 Pulse Rate 88 02/29/20 22:42 Respiratory Rate 16 02/29/20 22:42 Blood Pressure 125/62 02/29/20 22:42 Pulse Oximetry 100 02/29/20 22:42 Course Orders Ordered: ED Orders 02/29/20 22:44 US OB <= 14 weeks fetus Stat 02/29/20 22:55 Complete Blood Count AUTO DIFF Stat Comprehensive Metabolic Panel Stat HCG Quantitative /Beta subunit Stat 03/01/20 00:38 CT abdomen pelvis w con Stat Acetaminophen (Tylenol) 650 mg PO Q6HR PRN PRN Reason: Fever/Mild Pain (1-3) Docusate Sodium (Colace) 100 mg PO BID ELIZABETH Levothyroxine Sodium (Synthroid) 100 mcg PO QACBREAK ELIZABETH Morphine Sulfate (Morphine) 2 mg IV Q4HR PRN PRN Reason: Pain, Moderate (4-6) Naloxone HCl (Narcan) 0.2 mg IV Q2MIN PRN PRN Reason: Opiate Reversal Ondansetron HCl (Zofran) 4 mg IV Q4HR PRN PRN Reason: Nausea And Vomiting Last Admin: 02/29/20 22:59 Dose: 4 mg Documented by: SAVAGE Ondansetron HCl (Zofran) 4 mg IV Q8HR PRN PRN Reason: Nausea And Vomiting Discontinued Medications Hydromorphone HCl (Dilaudid) 0.5 mg IV NOW ONE Stop: 03/01/20 00:39 Last Admin: 03/01/20 00:45 Dose: 0.5 mg Documented by: LIZBETH Hydromorphone HCl (Dilaudid) 0.5 mg IV NOW ONE Stop: 03/01/20 02:51 Last Admin: 03/01/20 02:59 Dose: 0.5 mg Documented by: LIZBETH Sodium Chloride (Normal Saline 0.9%) 1,000 mls @ 1,000 mls/hr IV BOLUS ONE Stop: 02/29/20 23:40 Last Infusion: 03/01/20 02:03 Dose: 0 mls/hr Documented by: Admin: 02/29/20 22:59 Dose: 1,000 mls/hr Documented by: SAVAGE Morphine Sulfate (Morphine) 4 mg IV NOW ONE Stop: 02/29/20 22:45 Last Admin: 02/29/20 22:59 Dose: 4 mg Documented by: SAVAGE Reevaluation(s) Reevaluation #1: Initial call to on-call OB, Dr. gutierres. We share opinion that given labs and imaging this does not seem to be an OB problem. We agree that CT is indicated Reevaluation #2: call to Gen Surg after CT. No need for admission to his service. Admit to medicine for pain control, IVF and consultation if needed. Reevaluation #3: hospitalist happy to accept Vital Signs Vital signs: Vital Signs - 8 hr 02/29/20 22:42 02/29/20 23:05 02/29/20 23:52 Temperature 98.7 F Pulse Rate 88 79 77 Respiratory Rate 16 Blood Pressure 125/62 115/59 L Pulse Oximetry 100 98 100 03/01/20 00:00 03/01/20 00:30 03/01/20 01:00 Temperature Pulse Rate 79 83 77 Respiratory Rate Blood Pressure 126/79 Pulse Oximetry 100 97 99 03/01/20 01:01 03/01/20 01:05 03/01/20 01:34 Temperature Pulse Rate 77 69 92 H Respiratory Rate Blood Pressure 106/57 L Pulse Oximetry 100 100 100 03/01/20 02:00 03/01/20 02:05 03/01/20 02:30 Temperature Pulse Rate 71 81 79 Respiratory Rate Blood Pressure 102/67 Pulse Oximetry 99 98 100 MDM - Abdominal Pain Lab Data Result diagrams: 02/29/20 22:55 02/29/20 22:55 Labs: Lab Results 02/29/20 02/29/20 02/29/20 Range/Units 22:55 22:55 22:55 WBC 7.7 (4.5-11.0) X10^3/uL RBC 4.41 (4.0-5.2) X10^6/uL Hgb 13.2 (12.0-16.0) g/dL Hct 40.0 (36-46) % MCV 90.8 (80-100) fL MCH 30.0 (26-34) PG MCHC 33.1 (30-36) % RDW 13.1 (11.6-14.8) % Plt Count 228 (150-400) X10^3/uL Neut % (Auto) 56.9 (50-75) % Lymph % (Auto) 31.0 (25-40) % [place] % (Auto) 6.7 (3-14) % Eos % (Auto) 4.9 H (2-4) % Baso % (Auto) 0.5 (0-2) % Neut # (Auto) 4400 (2856-2983) /uL Lymph # (Auto) 2400 (3873-7226) /uL [place] # (Auto) 500 (0-900) /uL Eos # (Auto) 400 (0-450) /uL Baso # (Auto) 0 (0-100) /uL Sodium 134 L (137-145) mmol/L Potassium 3.8 (3.4-5.1) mmol/L Chloride 103 (98-107) mmol/L Carbon Dioxide 20 L (22-32) mmol/L BUN 11 (7-17) mg/dL Creatinine 0.57 (0.52-1.04) mg/dL Estimated GFR > 60.0 (>60) mL/min BUN/Creatinine Ratio 19.3 (6-22) Glucose 90 (70-100) mg/dL Calcium 9.7 (8.4-10.2) mg/dL Total Bilirubin 0.3 (0.2-1.3) mg/dL AST 23 (14-36) IU/L ALT 10 (<35) IU/L Alkaline Phosphatase 38 (38-126) U/L Total Protein 7.3 (6.3-8.2) g/dL Albumin 4.4 (3.5-5.0) g/dL Globulin 2.9 (1.7-4.1) g/dL Albumin/Globulin Ratio 1.5 (1.0-2.8) HCG, Quant 2237.6 mIU/mL Imaging Data 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 Intrauterine gestational sac. 3 cm right ovarian cyst. No subchorionic bleed CT scan - abdomen/pelvis: Radiologist's Impression: midabdomen airfluid levels consistent with ileus vs. SBO Discharge Plan Departure Patient Disposition: Admitted as Observation Clinical Impression: Partial small bowel obstruction Admit Date/Time: 03/01/20 03:34 Admit Provider: Yessenia Aguilar
[2020-02-29 22:42] VITALS: BP 125/62; PULSE 88; RESP 16; TEMP 37.1; O2SAT 100
--- NOTE | 2020-02-29 22:44 | DI.US.S_ITS ---
PROCEDURE: US OB <= 14 WEEKS FETUS INDICATIONS: SEVERE RIGHT LOWER QUADRANT PAIN OUTSIDE/PRIOR DATING DATA: Last menstrual period (LMP): 01/21/20. LMP-based estimated date of delivery ([place]): 10/27/20 . First dating scan (date and location): This study . Estimated date of delivery ([place]) from first dating scan: 10/28/20 . TECHNIQUE: Real-time scanning was performed of the fetus and maternal pelvic organs, with image documentation. Endovaginal scanning was also performed to better visualize the fetus and maternal ovaries. COMPARISON: None. 1.7 x 0.2 x 4.0 cm. FINDINGS: Embryo: Embryo not seen but there is what appears to be a gestational sac measuring 5 mm which would correlate with a gestational age of 5 weeks 2 days, +/-7 days. There is what appears to be a subchorionic hemorrhage measuring Measurement variability in dating: +/- 4 weeks by LMP, +/- 7 days by mean sac diameter (use before 6 weeks gestation if crown-rump length not able to be measured), +/- 5 days by crown-rump length (up to 8 weeks 6 days gestation), +/- 7 days by crown-rump length (up to 13 weeks 6 days gestation). Maternal organs: Ovaries normal considering gestational status and there is what appears to be a 3.1 x 2.0 x 2.2 cm hemorrhagic right corpus luteum cyst . Limited images through the kidneys demonstrate no hydronephrosis. IMPRESSION: There is what appears to be a gestational sac within the endometrial canal, but within that sac no definite intrauterine gestation is seen. However given the very early stage of associated with a small gestational sac of this size and intrauterine gestation frequently is not seen. Follow-up correlation with quantitative beta hCG and/or follow-up ultrasound is recommended. There is what appears to be a small subchorionic hemorrhage and also a hemorrhagic right corpus luteum cyst in this patient. Dictated by: Antione Castellon M.D. on 03/01/2020 at 9:42 Approved by: Antione Castellon M.D. on 03/01/2020 at 9:47
[2020-02-29] MEDS: MORPHINE 4 MG/ML INJ IV (22:59)
[2020-02-29] MEDS: SODIUM CHLORIDE 0.9% 1,000 ML 1000 ML IV (22:59)
[2020-02-29] MEDS: ONDANSETRON 4 MG/2 ML INJ IV (22:59)
[2020-02-29 23:04] LABS: Add Manual Diff / Slide Review NO; Basophils Absolute Auto 0 /uL (0-100); Basophils Percent Auto 0.5 % (0-2); Eosinophils Absolute Auto 400 /uL (0-450); Eosinophils Percent Auto 4.9 % (2-4); Hemoglobin 13.2 g/dL (12.0-16.0); Lymphocytes Absolute Auto 2400 /uL (1100-4500); Mean Corpuscular HGB Conc 33.1 % (30-36); Mean Corpuscular Volume 90.8 fL (80-100); Monocytes Absolute Auto 500 /uL (0-900); Monocytes Percent Auto 6.7 % (3-14); Neutrophils Absolute Auto 4400 /uL (1500-7000); Neutrophils Percent Auto 56.9 % (50-75); Platelet Count 228 X10^3/uL (150-400); Red Blood Cell Count 4.41 X10^6/uL (4.0-5.2); Red Cell Distribution Width 13.1 % (11.6-14.8); White Blood Cell Count 7.7 X10^3/uL (4.5-11.0)
[2020-02-29 23:05] VITALS: PULSE 79; O2SAT 98
[2020-02-29 23:15] LABS: Alanine Aminotransferase 10 IU/L (<35); Albumin 4.4 g/dL (3.5-5.0); Albumin Globulin Ratio 1.5 (1.0-2.8); Alkaline Phosphatase 38 U/L (38-126); Aspartate Aminotransferase 23 IU/L (14-36); BUN Creatinine Ratio 19.3 (6-22); Bilirubin Total 0.3 mg/dL (0.2-1.3); Blood Urea Nitrogen 11 mg/dL (7-17); Calcium 9.7 mg/dL (8.4-10.2); Carbon Dioxide 20 mmol/L (22-32); Chloride 103 mmol/L (98-107); Estimated Glomerular Filt Rate > 60.0 mL/min (>60); Globulin 2.9 g/dL (1.7-4.1); Glucose 90 mg/dL (70-100); HEMOLYSIS < 15 (0-50); Potassium 3.8 mmol/L (3.4-5.1); Sodium 134 mmol/L (137-145); Total Protein 7.3 g/dL (6.3-8.2)
[2020-02-29 23:32] LABS: HCG Quantitative /Beta subunit 2237.6 mIU/mL
[2020-02-29 23:52] VITALS: BP 115/59; PULSE 77; O2SAT 100
[2020-03-01] VITALS (27 sets, daily range): BP systolic 101–134; BP diastolic 57–86; PULSE 66–108; RESP 8–29; TEMP 36.2–37.1; O2SAT 19–100; BMI 26.6
--- NOTE | 2020-03-01 00:30 | PC.NURSE ---
Pt asking for more pain med; Dr Corcoran now at bedside discussing plan of care.
--- NOTE | 2020-03-01 00:38 | DI.CT.S_ITS ---
PROCEDURE: CT ABDOMEN PELVIS W CON INDICATIONS: severe RLQ pain TECHNIQUE: After the administration of intravenous contrast, 5 mm thick sections acquired from the diaphragm to the symphysis. 5 mm coronal and sagittal reformats were acquired. For radiation dose reduction, the following was used: automated exposure control, adjustment of mA and/or kV according to patient size. COMPARISON: [facility], ABDOMEN LIMITED, 02/27/2020, 8:13. [facility], PELVIC COMPLETE, 02/27/2020, 8:22. FINDINGS: Image quality: Excellent. ABDOMEN: Lung bases: Lung bases are clear. Heart size is normal. Solid organs: Liver is mildly enlarged. Gallbladder is unremarkable. Biliary system is non dilated. Pancreas enhances normally. Spleen is normal in size and enhancement. No adrenal nodules. Kidneys demonstrate normal size and enhancement, without hydronephrosis. Peritoneum and bowel: Bowel loops demonstrate mild fluid-filled prominence of small bowel. Moderate stool is present. Appendix is normal. Nodes and vessels: No retroperitoneal or mesenteric adenopathy by size criteria. Aorta and inferior vena cava are normal in size. Miscellaneous: No ventral hernias. PELVIS: Genitourinary: Bladder wall thickness is normal. There is a focus of low attenuation with rim enhancement within the right adnexa measuring 21 mm. Miscellaneous: No inguinal hernias or adenopathy. Bones: No suspicious bony lesions. No vertebral body compression fractures. IMPRESSION: 1. Mild prominence of small bowel air-fluid levels suggestive of ileus. Developing partial small bowel obstruction cannot be definitively excluded. The above findings are concordant with preliminary report. Dictated by: Kayleigh Pascal M.D. on 03/01/2020 at 7:59 Approved by: Kalyeigh Pascal M.D. on 03/01/2020 at 8:02
[2020-03-01] MEDS: HYDROMORPHONE 0.5 MG INJ IV ×5 (00:45→13:19)
--- NOTE | 2020-03-01 02:50 | PC.NURSE ---
Pt reports pain is returning, now 12/30. Dr Corcoran notified, order received for repeat dose of dilaudid 0.5mg
--- NOTE | 2020-03-01 03:48 | P.HP_ITS ---
History of Present Illness History of Present Illness Date Patient Seen: 03/01/20 Time Patient Seen: 03:49 Chief complaint: stomach pain Narrative: Maria Alejandra Ram is a 29 y.o. female 5 weeks 1 day gestation presents with lower right sided abdominal pain. She was seen in the ED by both Dr. Martines and Dr. Goldman on February 26 and at that time was diagnosed with a subchorionic hemorrhage and early threatened miscarriage. She was discharged home with advi ce that when she started spotting she may bleed quite a bit and was instructed at that time if that happened to return to the ED for further management. She denies bleeding today however she has continued right lower quadrant pain. She stated that the lower abdominal pain worsened when she started taking pain medications for this. She has had less nausea and vomiting. Repeat CT of her abdomen and pelvis was reported to me to appear to have documented resolution of the subchorionic hemorrhage and that she may now possibly have a partial small- bowel obstruction. Patient has had a history of at in the past. She denies fevers sweats or chills, difficulty breathing, chest pain, changes in her urinary habits, however she has not had a bowel movement in 2 days. The emergency department discussed her case with both Ob and general surgery and both requested that the patient be admitted under medicine service for medical management of a small-bowel obstruction, and that they would be available for consultation. I did discuss the case with Dr. goldman and she was comfortable w ith our managing the patient's small-bowel obstruction. Temperature 98.7?, blood pressure 102/67, heart rate 79, respiratory rate 16, oxygen saturation of 100% on room air. WBC 7.7, RBC 4.41, hemoglobin 13.2, hematocrit 40%, platelet count 228, sodium 134, potassium 3.8, chloride 103, CO2 20, creatinine in 0.57, BUN 11, GFR is greater than 60, glucose 90, calcium 9.7, liver enzymes are normal. Her quantitative hCG is 2237, COVID-19 is pending. Patient History Medical History Renal stones (Acute) Vaginal delivery (Acute) Surgical History delivery delivered (Acute) Family & Social History Safety & Behavioral: Feels Safe in Current Yes Environment Been Physically Hurt or No Threatened By a Person Tobacco & Substance use: Smoking Status Never smoker alcohol intake frequency 0-2 drinks per day Substance Use Type does not use Meds Home Medications and Allergies Home Medications Medication Instructions Recorded Confirmed Type oxycodone-acetaminophen [Percocet] 1 tab PO Q6H PRN #14 tab 02/27/20 02/29/20 Rx levothyroxine 100 mcg PO DAILY 02/29/20 02/29/20 History Allergies Allergy/AdvReac Type Severity Reaction Status Date / Time No Known Drug Allergies Allergy Verified 02/29/20 22:45 Review of Systems Review of Systems ROS: Yes All systems reviewed with the patient and are negative except as otherwise documented Exam Vital Signs (past 8 hours): - 02/29/20 22:42 02/29/20 23:05 02/29/20 23:52 Temperature 98.7 F Pulse Rate 88 79 77 Respiratory Rate 16 Blood Pressure 125/62 115/59 L Pulse Oximetry 100 98 100 03/01/20 00:00 03/01/20 00:30 03/01/20 01:00 Temperature Pulse Rate 79 83 77 Respiratory Rate Blood Pressure 126/79 Pulse Oximetry 100 97 99 03/01/20 01:01 03/01/20 01:05 03/01/20 01:34 Temperature Pulse Rate 77 69 92 H Respiratory Rate Blood Pressure 106/57 L Pulse Oximetry 100 100 100 03/01/20 02:00 03/01/20 02:05 03/01/20 02:30 Temperature Pulse Rate 71 81 79 Respiratory Rate Blood Pressure 102/67 Pulse Oximetry 99 98 100 Oxygen Delivery Method Room Air Narrative Exam Narrative: Gen: Alert, oriented, well-developed 29 y.o. female, NAD HEENT: normocephalic, atraumatic, conjunctiva clear, sclera non-icteric, oral mucosa pink and moist Neck: supple, full ROM, no JVD, trachea is midline Resp: Lungs CTA, non-labored breathing CV: RRR, no murmur or rubs Abd: soft, non-tender, faint BTs Skin: no lesions or rashes, dry and intact Neuro: Alert and oriented X 4 w/no focal deficits. Speech clear and coherent. Extremities: moves all 4 extremities, is ambulatory, negative Jeri?s sign Psyche: normal mood and affect. Objective Labs Result Diagrams: 02/29/20 22:55 02/29/20 22:55 Labs: Laboratory Results - last 24 hr 02/29/20 02/29/20 02/29/20 22:55 22:55 22:55 WBC 7.7 RBC 4.41 Hgb 13.2 Hct 40.0 MCV 90.8 MCH 30.0 MCHC 33.1 RDW 13.1 Plt Count 228 Neut % (Auto) 56.9 Lymph % (Auto) 31.0 [place] % (Auto) 6.7 Eos % (Auto) 4.9 H Baso % (Auto) 0.5 Neut # (Auto) 4400 Lymph # (Auto) 2400 [place] # (Auto) 500 Eos # (Auto) 400 Baso # (Auto) 0 Sodium 134 L Potassium 3.8 Chloride 103 Carbon Dioxide 20 L BUN 11 Creatinine 0.57 Estimated GFR > 60.0 BUN/Creatinine Ratio 19.3 Glucose 90 Calcium 9.7 Total Bilirubin 0.3 AST 23 ALT 10 Alkaline Phosphatase 38 Total Protein 7.3 Albumin 4.4 Globulin 2.9 Albumin/Globulin Ratio 1.5 HCG, Quant 2237.6 Assessment & Plan Assessment & Plan narrative: Trupti Ram is a 27 week 5 gestation who will be placed into observation for a suspected small bowel obstruction. Suspected small bowel obstruction, acute, present on admission -Probable cause by use of percocet prescibed to her 2 days ago -IFV of NS at 100 ml/day -NPO, then clears in starting at breakfast -Silver Goldman and Gayla on standby to consult Hypothyroidism -Continue home dose of levothyroxine 100 mcg daily Consults: Dr Goldman and Dr. Shukla consult and involvement is appreciated. Patient is observation status as her stay is not likely to exceed 2 midnights. FEN: IVF NS at 100 ml/hour, NPO, then clears for breakfast and advance , C/BMP and magnesium in the am. VTE prophylaxis: Bilateral SCDs Dispo: Probable discharge to home Code Status: Full code as discussed with patient COVID-19 COVID-19 status: Negative Result date/Date tested (Pos, Neg/Pending): 03/01/20 Quality VTE Deep Vein Thrombosis/Pulmonary Embolism Present on Admission: No
[2020-03-01 04:46] LABS: COVID19 -Nasal RAPID Negative (Negative)
[2020-03-01] MEDS: MORPHINE 2 MG/ML INJ IV (04:46)
--- NOTE | 2020-03-01 07:23 | PC.NURSE ---
Patient having pain in right lower quadrant. Gave morphine 2 mg IVP after talking with provider about desat issue in ED. Dose was ordered half of ED gave, provider said ok to give. Patient rang five minutes later and wanted dilaudid since pain med was not effective. No order, spoke with provider, and stated patient wanted to speak with her. Provider busy and unable. Wrote order for dilaudid IVP, and discontinued morphine. Once med verified and able to pull from pyxsis. was given. Told patient it was able to be given every three hours, and wrote the time on board of last dose. five minutes later patient rang and wanted her morphine since pain med was not effective. Wanted to speak with MD. Explained MD had put the dilaudid order on her chart. . Stated wanted to see the charge nurse, that was done. Patient rang again later and wanted to see provider. Provider and I went into room, spoke with patient, introduced provider. Patient then denied needing to speak with provider.
[2020-03-01] MEDS: SODIUM CHLORIDE 0.9% 1,000 ML 100 ML IV (07:50)
[2020-03-01] MEDS: ONDANSETRON 4 MG/2 ML INJ IV ×4 (07:51→17:31)
--- NOTE | 2020-03-01 08:44 | P.CONS_ITS ---
History of Present Illness Consult details Date Patient Seen: 03/01/20 Time Patient Seen: 08:45 Chief complaint: stomach pain Narrative: 29-year-old female at 5 weeks gestational seen in consultation for an ileus. She was admitted from the emergency room last night with abdominal pain nausea. She underwent a CT scan of the abdomen which demonstrated air-fluid l evels within the small bowel. She was admitted to Medicine with the diagnosis of small-bowel obstruction. In discussion with the patient this morning she says that she has no abdominal distension she has point tenderness over her uterus. She has nausea no vomiting. She is hungry, having bowel movements and passing gas. At admission she is afebrile white count 8. Meds Home Medications and Allergies Home Medications Medication Instructions Recorded Confirmed Type oxycodone-acetaminophen [Percocet] 1 tab PO Q6H PRN #14 tab 02/27/20 02/29/20 Rx levothyroxine 100 mcg PO DAILY 02/29/20 02/29/20 History Allergies Allergy/AdvReac Type Severity Reaction Status Date / Time No Known Drug Allergies Allergy Verified 02/29/20 22:45 Exam Vital Signs (past 8 hours): - 03/01/20 01:00 03/01/20 01:01 03/01/20 01:05 Temperature Pulse Rate 77 77 69 Respiratory Rate Blood Pressure 106/57 L Pulse Oximetry 99 100 100 03/01/20 01:34 03/01/20 02:00 03/01/20 02:05 Temperature Pulse Rate 92 H 71 81 Respiratory Rate Blood Pressure 102/67 Pulse Oximetry 100 99 98 03/01/20 02:30 03/01/20 04:25 Temperature 97.5 F L Pulse Rate 79 71 Respiratory Rate 18 Blood Pressure 117/81 Pulse Oximetry 100 100 Oxygen Delivery Method Room Air Oxygen Flow Rate 0 Narrative Exam Narrative: General-no acute distress, well nourished HEENT-moist mucous membranes, no scleral icterus Neck-supple, no lymphadenopathy Chest- non labored respirations, clear to auscultation bilaterally Cardiac-regular rate no peripheral edema Abdomen-soft, nondistended point tenderness over the uterus Extremities-warm, well perfused Neurological-alert and oriented, no focal deficits Objective Labs Result Diagrams: 02/29/20 22:55 02/29/20 22:55 Labs: Laboratory Results - last 24 hr 08/04/1102/29/20 02/29/20 22:55 22:55 22:55 WBC 7.7 RBC 4.41 Hgb 13.2 Hct 40.0 MCV 90.8 MCH 30.0 MCHC 33.1 RDW 13.1 Plt Count 228 Neut % (Auto) 56.9 Lymph % (Auto) 31.0 [place] % (Auto) 6.7 Eos % (Auto) 4.9 H Baso % (Auto) 0.5 Neut # (Auto) 4400 Lymph # (Auto) 2400 [place] # (Auto) 500 Eos # (Auto) 400 Baso # (Auto) 0 Sodium 134 L Potassium 3.8 Chloride 103 Carbon Dioxide 20 L BUN 11 Creatinine 0.57 Estimated GFR > 60.0 BUN/Creatinine Ratio 19.3 Glucose 90 Calcium 9.7 Total Bilirubin 0.3 AST 23 ALT 10 Alkaline Phosphatase 38 Total Protein 7.3 Albumin 4.4 Globulin 2.9 Albumin/Globulin Ratio 1.5 HCG, Quant 2237.6 COVID-19 PCR 03/01/20 03:44 WBC RBC Hgb Hct MCV MCH MCHC RDW Plt Count Neut % (Auto) Lymph % (Auto) [place] % (Auto) Eos % (Auto) Baso % (Auto) Neut # (Auto) Lymph # (Auto) [place] # (Auto) Eos # (Auto) Baso # (Auto) Sodium Potassium Chloride Carbon Dioxide BUN Creatinine Estimated GFR BUN/Creatinine Ratio Glucose Calcium Total Bilirubin AST ALT Alkaline Phosphatase Total Protein Albumin Globulin Albumin/Globulin Ratio HCG, Quant COVID-19 PCR Negative Assessment & Plan Assessment and plan (1) Ileus: Status: Acute Assessment & Plan narrative: This is a 29-year-old female who is 5 weeks who is admitted to the hospital with abdominal pain. She had a CT at the time of admission which demonstrates some air fluid levels within the small bowel no transition point was interpreted as ileus. She is currently passing gas having bowel movements. I think her abdominal pain is likely from blood within the uterus secondary subchorionic hemorrhage and this is causing her nausea. Recommend that we start her on a diet of clear liquids and advance as tolerated. I have canceled the small-bowel follow-through. no acute surgical intervention
--- NOTE | 2020-03-01 10:54 | PC.NURSE ---
Addendum entered by Chauncey Vasquez R.N. 03/01/20 14:48: Patient in 03/[address] Mahmood ordered 1mg IV dilaudid now dose. Original Note: Telephoned Dr. Goldman at 1030, left message to consult w/ patient.
--- NOTE | 2020-03-01 12:12 | DI.US.S_ITS ---
PROCEDURE: US PELVIC COMPLETE INDICATIONS: RULE OUT RIGHT OVARIAN TORSION TECHNIQUE: Real-time scanning was performed of the pelvic organs, with image documentation. Additional endovaginal scanning was necessary due to incomplete visualization of the adnexal and endometrial structures by transabdominal scanning. COMPARISON: [facility], , US PELVIC COMPLETE, 02/27/2020, 8:22. FINDINGS: Transabdominal scanning: Limited scanning through the kidneys shows no hydronephrosis. No pathologic free abdominal or pelvic fluid. Endovaginal scanning: Uterus: Uterus is normal in size at 9.7 x 5 x 6.6 cm. Intrauterine gestational sac is seen measures 4.1 mm in size with a estimated gestational age of 5 week 1 day. Cervix is closed and is within normal limits. No cardiac activity is detected. Perigestational hemorrhage measures 3.5 x 1.3 x 1 cm in size is seen. Ovaries: Right ovary measures 3.6 x 2.4 x 3.8 cm in size. Left ovary measures 2.8 x 2.2 x 2.1 cm in size. 1.8 x 2.4 x 2.7 cm corpus luteal cyst is noted in right ovary. IMPRESSION: 1. Single intrauterine gestational sac. No pole or cardiac activity is detected. Follow-up with beta HCG level and follow-up ultrasound is recommended. 2. 1.8 x 2.4 x 2.7 cm corpus luteal cyst is seen in right ovary. No evidence of ovarian torsion. 3. Suggestion of perigestational hemorrhage measures 3.5 x 1.3 x 1 cm in size. Dictated by: Emile Lynn M.D. on 03/01/2020 at 15:00 Approved by: Emile Lynn M.D. on 03/01/2020 at 15:07
--- NOTE | 2020-03-01 13:52 | CM.DANOTE ---
Patient is a 29 year old female who was admitted on 03/01/20 for Stomach Pain. Pt has [employer] for insurance and her PCP is not listed. EMR was reviewed. Per MD, pt to have consult from Surgeon and OBGYN to determine medical needs. Per Surgeon, no bowel obstruction or need for bowel follow through indicated and referring to OBGYN for consult and recommendations. OBGYN Consult pending. SW attempted to meet bedside with pt and spouse rooming in but pt in significant discomfort and she was able to confirm she lives at home with spouse and is Independent with ADL's at baseline and cares for her children with local supportive family but pt unable to participate further. Plan: SW to follow closely for OBGYN consult to determine possible d/c planning needs and medical POC. 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 No Advance Directives on File No History Provided By Patient,Family Member,Medical Record Has Patient been admitted in last 30 No days? Prior Living Arrangements House Household Members spouse,children Type of transporation used prior to Drives own vehicle admit Independent with ADL's Yes Is patient alert and oriented? Yes Caregiver for Another Yes: children at home Barriers to Discharge No Discharge Plan Home Transportation Arrangement Spouse bedside and can provide transport if safe for home Referrals Initiated None needed Review Status In Process Please Provide Date Initial DC 03/01/20 Assessment Was Performed Next Review Type Continued Stay Review
[2020-03-01] MEDS: HYDROMORPHONE 2 MG INJ 1 MG IV ×7 (14:22→18:30)
--- NOTE | 2020-03-01 15:57 | SUR.HOLD ---
1554 Medicated per VTO with Dr. Bullock (05.-1.0 mg as needed). Pt rates pain 7-8/10; lower range used since pt had fallen asleep and desat to 85%. She is awake, shaking, moaning. Spouse holding her hand. Pt on continuous pulse ox. 1559 HR 85, sat 100% currently. Dr. Bullock speaking to the patient.
--- NOTE | 2020-03-01 16:06 | PC.NURSE ---
OR crew here @ [id number] to escort to OR. Pt HL, changed into gown and escorted to surgery suite. WIll do assessment upon return.
--- NOTE | 2020-03-01 16:07 | SUR.HOLD ---
Addendum entered by Ludy Kebede R.N. 03/01/20 16:08: Pt continues shaking and moaning. Responsive, oriented. Original Note: 1605 Another 0.5 mg dilaud[address] given per Dr. Bullock. No evidence of relief from the first 05.mg. Dr. Bullock was informed of desat (reason 0.5 was given rather than 1.0 mg)
--- NOTE | 2020-03-01 16:20 | SUR.HOLD ---
Continues to keira bacon. Dr. Bullock has seen her twice, directed staff to administer more medication. Sat 100% on 2LNP, HR 90. c/o dry mouth, swab given.
--- NOTE | 2020-03-01 16:31 | SUR.HOLD ---
Dr. Vargas speaking to pt and spouse. Pt medicated for c/o nausea. Sat 100%, HR 94, pt shivering, moaning, mild relief from pain med. Remains oriented and responses are appropriate.
[2020-03-01] MEDS: CEFAZOLIN 2 GM/100 ML FROZ.PIGGY IV (16:36)
--- NOTE | 2020-03-01 16:50 | SUR.OPER ---
Lithotomy on padded OR bed, head on pillow, arms secured on padded arm boards at <90 degrees abduction. Legs secured in padded yellow fins stirrups.
[2020-03-01] MEDS: BUPIVACAINE 0.5% W/ EPI (PF) 30 ML VIAL INJ (17:02)
--- NOTE | 2020-03-01 17:15 | PM.PREOP ---
Pre-operative Note COVID-19 COVID-19 status: Negative Result date/Date tested (Pos, Neg/Pending): 03/01/20 Interval Note History & Physical reviewed/Exam performed by Physician: Yes Changes to H&P: No H&P completed within 30 days and has changed as indicated here:: 03/01/20
--- NOTE | 2020-03-01 17:26 | PM.CN ---
History of Present Illness Consult details Date Patient Seen: 03/01/20 Time Patient Seen: 13:30 Chief complaint: stomach pain Reason for consult: Abdominal pain in a woman at 5 weeks Requesting provider: Liliana Mahmood Narrative: Patient is a 29-year-old 5 para 4 at 5 weeks gestation who was admitted last evening with right lower quadrant pain She has had some nausea associated with the pain. She had a bowel movement this morning. She is passing gas. She reports that the pain has gotten worse since Sunday. She had a little bit of bleeding over the weekend. She does have a subchorionic hemorrhage on the ultrasound. Meds Home Medications and Allergies Home Medications Medication Instructions Recorded Confirmed Type oxycodone-acetaminophen [Percocet] 1 tab PO Q6H PRN #14 tab 02/27/20 02/29/20 Rx levothyroxine 100 mcg PO DAILY 02/29/20 02/29/20 History Allergies Allergy/AdvReac Type Severity Reaction Status Date / Time No Known Drug Allergies Allergy Verified 03/01/20 15:57 Exam Vital Signs (past 8 hours): - 03/01/20 15:30 03/01/20 15:50 Temperature 98.3 F Pulse Rate 83 85 Respiratory Rate 17 8 L Blood Pressure 114/78 Pulse Oximetry 100 85 L Oxygen Delivery Method Nasal Cannula Oxygen Flow Rate 3 Narrative Exam Narrative: Generally: Patient is in moderate distress after the ultrasound. She is tearful. Lungs: Clear to auscultation bilaterally Cardiovascular: Regular rate and rhythm Abdomen: Soft, good bowel sounds in all 4 quadrants. There is some guarding and rebound tenderness in the right lower quadrant. She has a well-healed Pfannenstiel scar. Ultrasound: Good blood flow to the right ovary. Previous imaging showed a subchorionic hemorrhage in the uterus. This is decreased in size since Sunday. No ureteral stones, and the appendix appeared normal. Objective Labs Result Diagrams: 02/29/20 22:55 02/29/20 22:55 Labs: Laboratory Results - last 24 hr 02/29/20 02/29/20 02/29/20 22:55 22:55 22:55 WBC 7.7 RBC 4.41 Hgb 13.2 Hct 40.0 MCV 90.8 MCH 30.0 MCHC 33.1 RDW 13.1 Plt Count 228 Neut % (Auto) 56.9 Lymph % (Auto) 31.0 [place] % (Auto) 6.7 Eos % (Auto) 4.9 H Baso % (Auto) 0.5 Neut # (Auto) 4400 Lymph # (Auto) 2400 [place] # (Auto) 500 Eos # (Auto) 400 Baso # (Auto) 0 Sodium 134 L Potassium 3.8 Chloride 103 Carbon Dioxide 20 L BUN 11 Creatinine 0.57 Estimated GFR > 60.0 BUN/Creatinine Ratio 19.3 Glucose 90 Calcium 9.7 Total Bilirubin 0.3 AST 23 ALT 10 Alkaline Phosphatase 38 Total Protein 7.3 Albumin 4.4 Globulin 2.9 Albumin/Globulin Ratio 1.5 HCG, Quant 2237.6 COVID-19 PCR 03/01/20 03:44 WBC RBC Hgb Hct MCV MCH MCHC RDW Plt Count Neut % (Auto) Lymph % (Auto) [place] % (Auto) Eos % (Auto) Baso % (Auto) Neut # (Auto) Lymph # (Auto) [place] # (Auto) Eos # (Auto) Baso # (Auto) Sodium Potassium Chloride Carbon Dioxide BUN Creatinine Estimated GFR BUN/Creatinine Ratio Glucose Calcium Total Bilirubin AST ALT Alkaline Phosphatase Total Protein Albumin Globulin Albumin/Globulin Ratio HCG, Quant COVID-19 PCR Negative Assessment & Plan Assessment and plan (1) 5 weeks gestation of : Status: Acute (2) Subchorionic hemorrhage in first trimester: Qualifiers: Fetus number: single or unspecified fetus Qualified Code(s): O41.8X10 - Other specified disorders of amniotic fluid and membranes, first trimester, not applicable or unspecified; O46.8X1 - Other antepartum hemorrhage, first trimester Status: Acute (3) Pelvic pain: Status: Acute (4) Corpus luteum cyst: Status: Acute Assessment & Plan narrative: Assessment: 29-year-old 5 para 4 at 5 weeks gestation with right lower quadrant pain Corpus luteal cyst on the right ovary Subchorionic hemorrhage which appears to be resolving History of kidney stones Plan: Diagnostic laparoscopy COVID-19 COVID-19 status: Negative Result date/Date tested (Pos, Neg/Pending): 03/01/20 Time Spent With Patient Time with patient: 15-24 minutes
[2020-03-01] MEDS: fentaNYL 100 MCG/2 ML INJ (18:03)
[2020-03-01] MEDS: LACTATED RINGERS 1,000 ML 42 ML IV (18:20)
[2020-03-01] MEDS: ACETAMINOPHEN 325 MG TABLET 650 MG PO ×2 (18:27→23:53)
--- NOTE | 2020-03-01 19:40 | PC.NURSE ---
Pt returned from PACU @ 1907 Two small scope bandages in place on abdomen. Pt taking cl liq at this time w/o incidence. Resting at intervals. Call light w/in reach, bed alarm on for pt safety.
[2020-03-01] MEDS: LACTATED RINGERS 1,000 ML 100 ML IV (19:52)
--- NOTE | 2020-03-01 21:04 | PM.PN.1 ---
Subjective Subjective Date Patient Seen: 03/01/20 Interval history: Brief progress note: Discussed case with general surgery, Dr. Shukla, who does not believe this is an SBO based on review of CT, patients pain is RLQ over pelvis, and patient is passing flatus and having BM's, therefore, cancelled small bowel follow-through and recommended STATISTICAL PROGRAMMER consult as chorionic bleed is felt to be source. Discussed case with STATISTICAL PROGRAMMER, Dr. Vargas, who will see the patient and requested pelvic US with doppler to assess for ovarian torsion which was ordered. Patient has worsening pain and increased hydromophone frequency. Plan to trend HCG and added UA and gonorrhea and chlamydia. Exam Vital Signs (past 8 hours): - 03/01/20 15:30 03/01/20 15:50 03/01/20 17:24 Temperature 98.3 F 98.1 F Pulse Rate 83 85 80 Respiratory Rate 17 8 L 16 Blood Pressure 114/78 105/67 Pulse Oximetry 100 85 L 100 03/01/20 17:29 03/01/20 17:34 03/01/20 17:39 Temperature Pulse Rate 84 82 70 Respiratory Rate 19 11 L 11 L Blood Pressure 130/86 134/82 117/81 Pulse Oximetry 100 97 94 03/01/20 17:59 03/01/20 18:19 03/01/20 18:34 Temperature Pulse Rate 69 70 108 H Respiratory Rate 29 H 25 H 20 Blood Pressure 114/71 120/75 106/58 L Pulse Oximetry 100 100 19 L 03/01/20 18:43 03/01/20 19:07 03/01/20 19:38 Temperature 98.1 F 97.5 F L Pulse Rate 75 76 66 Respiratory Rate 16 24 22 Blood Pressure 112/68 113/71 110/57 L Pulse Oximetry 98 99 94 Oxygen Delivery Method Room Air Oxygen Flow Rate 100 Objective Labs Result Diagrams: 02/29/20 22:55 02/29/20 22:55 Labs: Laboratory Results - last 24 hr 02/29/20 02/29/20 02/29/20 22:55 22:55 22:55 WBC 7.7 RBC 4.41 Hgb 13.2 Hct 40.0 MCV 90.8 MCH 30.0 MCHC 33.1 RDW 13.1 Plt Count 228 Neut % (Auto) 56.9 Lymph % (Auto) 31.0 [place] % (Auto) 6.7 Eos % (Auto) 4.9 H Baso % (Auto) 0.5 Neut # (Auto) 4400 Lymph # (Auto) 2400 [place] # (Auto) 500 Eos # (Auto) 400 Baso # (Auto) 0 Sodium 134 L Potassium 3.8 Chloride 103 Carbon Dioxide 20 L BUN 11 Creatinine 0.57 Estimated GFR > 60.0 BUN/Creatinine Ratio 19.3 Glucose 90 Calcium 9.7 Total Bilirubin 0.3 AST 23 ALT 10 Alkaline Phosphatase 38 Total Protein 7.3 Albumin 4.4 Globulin 2.9 Albumin/Globulin Ratio 1.5 HCG, Quant 2237.6 COVID-19 PCR 03/01/20 03:44 WBC RBC Hgb Hct MCV MCH MCHC RDW Plt Count Neut % (Auto) Lymph % (Auto) [place] % (Auto) Eos % (Auto) Baso % (Auto) Neut # (Auto) Lymph # (Auto) [place] # (Auto) Eos # (Auto) Baso # (Auto) Sodium Potassium Chloride Carbon Dioxide BUN Creatinine Estimated GFR BUN/Creatinine Ratio Glucose Calcium Total Bilirubin AST ALT Alkaline Phosphatase Total Protein Albumin Globulin Albumin/Globulin Ratio HCG, Quant COVID-19 PCR Negative Quality VTE Deep Vein Thrombosis/Pulmonary Embolism Present on Admission: No
[2020-03-01] MEDS: HYDROMORPHONE 1 MG INJ IV (22:27)
[2020-03-02 00:10] LABS: RBC Urine None Seen (0-5/HPF); WBC Urine None Seen (0-5/HPF)
[2020-03-02 00:25] LABS: Appearance Urine UA CLEAR; Bilirubin Urine UA NEGATIVE (NEGATIVE); Color Urine UA YELLOW; Glucose Urine UA NEGATIVE (Negative); Ketones Urine UA 2+ (NEGATIVE); Leukocyte Esterase Urine UA NEGATIVE (NEGATIVE); Nitrite Urine UA NEGATIVE (Negative); Occult Blood Urine UA TRACE-INTACT (Negative); Protein Urine UA NEGATIVE (Negative); Specific Gravity Urine UA <=1.005 (1.000-1.035); Urobilinogen Urine UA 0.2 E.U./dL (0.2)
[2020-03-02 00:27] LABS: pH Urine UA 6.5 (4.5-8.0)
[2020-03-02 00:28] LABS: Bacteria Urine Occasional (0-1); Culture Indicated Urine Cult Not Indicated; Squamous Epithelial Cell Urine 0-1 /HPF (0-5/HPF)
[2020-03-02 01:40] LABS: Urine N gonorrhoeae NOT DETECTED
[2020-03-02 01:42] LABS: Urine Chlamydia NOT DETECTED
[2020-03-02] MEDS: HYDROMORPHONE 1 MG INJ IV ×5 (02:36→12:21)
--- NOTE | 2020-03-02 02:42 | PC.NURSE ---
Addendum entered by Calista Ahn R.N. 03/02/20 04:43: Continues to complain of sharp lower abdominal pain right > left. Abdomen is soft. BP 116/70 HR 82. Lying in bed moaning repetitively. Had wanted to talk with PARK SUPERINTENDENT, but PARK SUPERINTENDENT deferring to ELECTRICAL ENGINEERING DESIGNER so Dr Vargas contacted and informed of continued pain despite extra dose of Dilaudid and Tylenol as well as above information. New order received for additional dose of IV Dilaudid. Addendum entered by Calista Ahn R.N. 03/02/20 03:54: Patient continuing to complain of sharp 7/10 lower abdominal pain despite having received Dilaudid at 0236. Discussed with PARK SUPERINTENDENT, Jeff, and order received to give additional dose of IV Dilaudid now. Original Note: 0000 Patient assessed. Is alert and oriented. Breath sounds CTA with RA sat of 100%. HRR. Denies nausea. BT hypoactive and denies flatus. Abdomen is soft but tend and complains of 7/10 cramping pains in lower abdomen; had Dilaudid at 2237 so medicated with Tylenol and ice applied. Denies dysuria, frequency or urgency with urination. Lap site dressings to abdomen are intact; left dressing is CDI but right dressing is apprx 75% saturated with sanguinous drainage but no leakage. Complains of sharp pains in left shoulder; provided warm blanket in addition to Tylenol given for abdominal pain. Is able to move herself in bed and is provided SBA when out of bed as complains of feeling dizzy when up. Fall risk assessment is moderate; bed alarm is activated. 0236 Patient has been asleep but now awake and up to bathroom and states pain is again 7/10; is shaky and moaning, moving very slowly. Medicated with Dilaudid and ice applied to abdomen per her request.
[2020-03-02 03:00] VITALS: BP 104/55; PULSE 71; RESP 18; TEMP 36.3; O2SAT 98
[2020-03-02] MEDS: ACETAMINOPHEN 325 MG TABLET 650 MG PO ×2 (04:13→08:03)
[2020-03-02] MEDS: LACTATED RINGERS 1,000 ML 100 ML IV (05:55)
[2020-03-02 06:30] LABS: Add Manual Diff / Slide Review NO; Basophils Absolute Auto 0 /uL (0-100); Basophils Percent Auto 0.1 % (0-2); Eosinophils Absolute Auto 0 /uL (0-450); Eosinophils Percent Auto 0.1 % (2-4); Hematocrit 38.5 % (36-46); Hemoglobin 12.8 g/dL (12.0-16.0); Lymphocytes Absolute Auto 700 /uL (1100-4500); Lymphocytes Percent Auto 10.1 % (25-40); Mean Corpuscular HGB Conc 33.3 % (30-36); Mean Corpuscular Hemoglobin 30.7 PG (26-34); Mean Corpuscular Volume 92.1 fL (80-100); Monocytes Absolute Auto 200 /uL (0-900); Monocytes Percent Auto 3.5 % (3-14); Neutrophils Absolute Auto 6100 /uL (1500-7000); Neutrophils Percent Auto 86.2 % (50-75); Platelet Count 229 X10^3/uL (150-400); Red Blood Cell Count 4.18 X10^6/uL (4.0-5.2); Red Cell Distribution Width 12.9 % (11.6-14.8); White Blood Cell Count 7.1 X10^3/uL (4.5-11.0)
[2020-03-02 06:58] LABS: HCG Quantitative /Beta subunit 2622.9 mIU/mL
[2020-03-02 07:00] VITALS: BP 109/64; PULSE 72; RESP 19; TEMP 37.2; O2SAT 100
[2020-03-02] MEDS: DOCUSATE 100 MG CAPSULE 200 MG PO (08:03)
--- NOTE | 2020-03-02 08:56 | PM.PN.1 ---
Subjective Subjective Date Patient Seen: 03/02/20 Time Patient Seen: 09:00 Interval history: This patient is a 29-year-old 004 at approximately 5 weeks gestation by LMP concordant with ultrasound, hospital day 2 admitted with right lower quadrant pain and postop day 1 status post diagnostic laparoscopy with Dr. Vargas. Diagnostic laparoscopy revealed a normal uterus, normal ovaries with a small corpus luteum cyst consistent with early gestation on the right ovary. Appendix was visualized normal, ureter visualized to be peristalsing, no abnormalities with the bowel. Small amount of adhesive disease to the anterior abdominal wall reduced intraoperatively. This morning, the patient reports that her pain is slightly better, is very specific to the right lower quadrant with minimal radiation, is not associated with urination or bowel movements. Patient is tolerating p.o., voiding, passing flatus and stool. Vaginal bleeding has stopped. Patient would like to know when she will be discharged. Exam Vital Signs (past 8 hours): - 03/02/20 03:00 Temperature 97.4 F L Pulse Rate 71 Respiratory Rate 18 Blood Pressure 104/55 L Pulse Oximetry 98 Oxygen Delivery Method Room Air Oxygen Flow Rate 0 Const General: cooperative and healthy appearing Other: The patient looks uncomfortable during exam. GI Palpation: soft, guarding (Voluntary guarding, somewhat distractible) and tender (Right lower quadrant) Extrem General: normal to inspection Objective Labs Result Diagrams: 03/02/20 05:55 02/29/20 22:55 Labs: Laboratory Results - last 24 hr 03/02/20 03/02/20 03/02/20 00:01 00:01 05:55 WBC 7.1 RBC 4.18 Hgb 12.8 Hct 38.5 MCV 92.1 MCH 30.7 MCHC 33.3 RDW 12.9 Plt Count 229 Neut % (Auto) 86.2 H D Lymph % (Auto) 10.[address] % (Auto) 3.5 Eos % (Auto) 0.1 L Baso % (Auto) 0.1 Neut # (Auto) 6100 Lymph # (Auto) [address] [place] # (Auto) 200 Eos # (Auto) 0 Baso # (Auto) 0 HCG, Quant Urine Color Yellow Urine Appearance Clear Urine pH 6.5 Ur Specific [place] <=1.005 Urine Protein Negative Urine Glucose (UA) Negative Urine Ketones 2+ H Urine Occult Blood Trace-intact Urine Nitrate Negative Urine Bilirubin Negative Urine Urobilinogen 0.2 Ur Leukocyte Esterase Negative Urine RBC None seen Urine WBC None seen Ur Squamous Epith Cells 0-1 /hpf Urine Bacteria Occasional (0-1) Ur Culture Indicated? Cult not indicated Ur Chlamydia DNA (PCR) Not detected N gonorrhoeae DNA (PCR) Not detected 03/02/20 05:55 WBC RBC Hgb Hct MCV MCH MCHC RDW Plt Count Neut % (Auto) Lymph % (Auto) [place] % (Auto) Eos % (Auto) Baso % (Auto) Neut # (Auto) Lymph # (Auto) [place] # (Auto) Eos # (Auto) Baso # (Auto) HCG, Quant 2622.9 Urine Color Urine Appearance Urine pH Ur Specific [place] Urine Protein Urine Glucose (UA) Urine Ketones Urine Occult Blood Urine Nitrate Urine Bilirubin Urine Urobilinogen Ur Leukocyte Esterase Urine RBC Urine WBC Ur Squamous Epith Cells Urine Bacteria Ur Culture Indicated? Ur Chlamydia DNA (PCR) N gonorrhoeae DNA (PCR) Assessment & Plan Assessment & Plan narrative: This patient is status post a diagnostic laparoscopy, with no signs of ruptured a ovarian cyst or ovarian torsion. She has an intrauterine with the present but tracking subchorionic hematoma, which can cause cramping. Similarly, a corpus luteum cyst can cause cramping pain, especially if there is a hemorrhagic component. The patient would like to continue this , and there is no other gynecologic cause of her pain that is evident. The above causes of pain for diagnosis of exclusion, and the patient's desire to continue the precludes intervention. I discussed the above with the patient, who vocalized understanding. Further plan her primary team, though from her perspective patient is stable for discharge. The patient has a history of followed by 2 successful , and would like to follow up at the Center were is offered. I encouraged her to call or come in with any questions until she has established care elsewhere, and we discussed that she should have follow-up within the next week and that she can have that with us if she would like. All questions were answered. Quality VTE Deep Vein Thrombosis/Pulmonary Embolism Present on Admission: No
[2020-03-02] MEDS: OXYCODONE IR 5 MG TABLET PO (10:43)
[2020-03-02 11:00] VITALS: BP 100/62; PULSE 86; RESP 16; TEMP 36.6; O2SAT 100
--- NOTE | 2020-03-02 12:02 | PC.NURSE ---
Day shift: Medicated Pt with 5mg oxycodone per MAR (new pain med today) and no change in pain of 01/29. Dr Yu benavides. Will continue to monitor.
--- NOTE | 2020-03-02 13:08 | PC.NURSE ---
Day shift: Pt left unit at approx 1315 via WC. NANOFABRICATION SPECIALIST is taking her to spouses car. Paperwork signed and all questions answered. Pt has MD yung. Pt also has all personal belongings. The 2 lap sites are dry and intact. The site at umbilicus does have shadow drainage but dried. aware.
--- NOTE | 2020-03-03 07:24 | P.OP_ITS ---
Operative Date/Time/Diagnoses Date of procedure: 03/01/20 Time of procedure: 18:00 Pre-op diagnosis: Severe right lower quadrant pain Five weeks gestation Subchorionic hemorrhage Right ovarian corpus luteal cyst Post-op diagnosis: same Procedure & Clinicians Procedure: Procedures Operation Date: 03/01/20 15:15 Actual Procedures Side Surgeon p Laparoscopy, Diagnostic, lysis of omental adhesions Evelyn Vargas MD Indications: Severe right lower quadrant pain Five weeks gestation Subchorionic hemorrhage Right ovarian corpus luteal cyst Surgeon: Evelyn Vargas [employer] Wellness Director: Linnea Goldman Anesthesia Type: General Operative Notes Findings: Seven week size anteverted uterus Omental to anterior abdominal wall adhesions Liver and gallbladder are normal Appendix is normal Small approximately 2 cm right corpus luteal cyst Small and large bowel are normal Tubes are normal bilaterally Left ovary is normal Normal left ureter with good peristalsis. Closure Type: primary Specimen(s): none Estimated blood loss (mL): 5 Blood products transfused: none Procedure in detail: After informed consent was obtained, the patient was taken to the operating room where she was placed in the dorsal supine position. After adequate general endotracheal anesthesia was achieved, she was placed in the dorsal lithotomy position, and prepped and draped in the usual sterile fashion. Nothing was placed into the vagina or the uterus. 6 cc of 0.5% Marcaine with epinephrine were injected in the umbilical fold. A 5 mm incision was made. The Veress needle was placed into the peritoneal cavity, and its placement confirmed by aspiration and drop test. The abdominal cavity was insufflated with 3.2 L of CO2. The Veress needle was removed, and a 5 mm trocar was placed without difficulty. A 2nd incision was made 4 cm lateral to the midline just below the level of the umbilicus on the left side. This was made after 6 cc of 0.5% Marcaine with epinephrine were injected. A 2nd 5 mm trocar was placed under direct visualization. Using the probe, both ovaries were visualized. There was a small, approximately 2 cm, corpus luteal cyst on the pole of right ovary. The right tube was normal. The left tube and ovary were normal. The liver, gallbladder, and appendix were visualized and were normal. The large and small bowel were inspected and were normal. The left ureter was followed down and found to be of normal caliber and had good peristalsis. There was a piece of omentum stuck to the anterior abdominal wall under the previous Pfannenstiel incision. This was taken down with the PlasmaKinetic with settings at 40 w. Hemostasis was achieved. The instruments were removed from the abdomen. The CO2 was allowed to escape. The incisions were repaired with 4 0 Biosyn in a subcuticular fashion. Steri-Strips, 2 x 2, and op site were placed. Sponge, lap, and instrument counts were correct x2. The patient tolerated the procedure well, and was taken to PACU in stable condition. Complications: none Post-operative Condition: stable Disposition: PACU Plan for aftercare: To acute care after recovery
--- NOTE | 2020-03-03 07:30 | PM.DS.1 ---
History of Present Illness History of Present Illness Date Patient Seen: 03/02/20 Time Patient Seen: 11:00 Date of Onset of Symptoms: 02/27/20 Chief complaint: stomach pain Narrative: Patient is a 29-year-old 5 para 4 who initially presented to the emergency department on February 27, 2020 and was found to have a small subchorionic hemorrhage. She also had a corpus luteal cyst on the right ovary. She was 5 weeks gestation. She was discharged from the emergency department. She presented to the emergency department again on March 01, 2020 with increased abdominal pain which had now travel to the right lower quadrant. She was admitted for consultation with gynecology and General surgery. A consultation was done on March 01, 2020 and she was found to have symptoms of an acute abdomen. She was taken for a diagnostic laparoscopy to rule out torsed ovary or appendicitis. She was found to have a normal pelvis except for omental adhesions to the anterior abdominal wall. The adhesions were taken down at the time of surgery. On postop day # 1. Patient was feeling better and requested discharge. Discharge Providers Provider Date of admission: 03/01/20 03:34 Discharge Date: 03/02/20 Consults: OBGYN General surgery Discharge provider: Evelyn Vargas MD Summary Hospital Course Discharge Diagnosis: Five weeks gestation Right corpus luteal cyst Subchorionic hemorrhage Omental to anterior abdominal wall adhesions Hospital Course: Patient was admitted on March 01, 2020 with severe right lower quadrant pain. A consultation with both general surgery and OBGYN were obtained. A decision was made to proceed with diagnostic laparoscopy to rule out appendicitis and ovarian torsion due to the extent of the patient's pain. The diagnostic laparoscopy revealed omental to anterior abdominal wall adhesions, a right corpus luteal cyst, and otherwise normal pelvis and abdomen. She requested discharge on March 02, 2020. Status at Discharge Cognitive/behavioral status at discharge: oriented Functional status at discharge: independent ambulation Overall status at discharge: patient is progressing back to baseline Time Spent with Patient Time spent: Less than 30 minutes Exam Vital Signs (past 8 hours): Oxygen Delivery Method Room Air Oxygen Flow Rate 0 Narrative Exam Narrative: Generally: A well-developed, well-nourished female, slightly uncomfortable Abdomen: Soft, good bowel sounds. Voluntary guarding. Tenderness to palpation in the right lower quadrant Lungs: Clear to auscultation bilaterally Cardiovascular: Regular rate and rhythm Extremities: Negative Homans, no edema Objective Labs Result Diagrams: 03/02/20 05:55 02/29/20 22:55 Discharge Assessment & Plan Assessment and Plan Assessment: Assessment: 29-year-old 5 para 4 at 5 weeks gestation with a right corpus luteal cyst and a subchorionic hemorrhage Normal diagnostic laparoscopy except for omental to anterior abdominal wall adhesions Plan of Treatment: Discharge to home Follow-up with regular OB Patient desires a , she will get care in [place] Discharge Plan Discharge Plan Patient Disposition: Home Discharge orders & Medications Prescriptions: New acetaminophen 325 mg Tablet 650 mg PO Q4HR PRN (Reason: Fever/Mild Pain (1-3)) Qty: 14 RF: 0 oxycodone 5 mg capsule 5 mg PO Q6H PRN (Reason: pain) Qty: 20 RF: 0 ondansetron HCl [Zofran] 4 mg tablet 4 mg PO Q8H Qty: 20 RF: 0 Continued oxycodone-acetaminophen [Percocet] 7.5-325 mg tablet 1 tab PO Q6H PRN (Reason: pain) Qty: 14 RF: 0 levothyroxine 100 mcg tablet 100 mcg PO DAILY RF: 0 Discharge Health Status Multidrug resistant organism: No MDRO Diet/Activity/Treatments Diet: Diet as Tolerated Visit Report/Discharge Packet Instructions: Acute Abdominal Pain, DI for Laparoscopy, DI for Abdominal Pain-Adult, DI for Acute Abdominal Pain, DI for Prescription Opioid Use, Acetaminophen, Oxycodone Stand Alone Forms: Surgery Discharge Visit Report Forms: Patient Portal/API, Stroke Signs & Symptoms Discharge Data Attending Provider: Yessenia Aguilar Admit Date/Time: 03/01/20 03:34 Discharges patient from system. Discharge Date/Time: 03/02/20 13:18 Quality VTE Deep Vein Thrombosis/Pulmonary Embolism Present on Admission: No
--- NOTE | 2020-03-03 07:40 | PM.PN.1 ---
Subjective Subjective Date Patient Seen: 03/02/20 Interval history: Patient had improvement of her abdominal pain. However later in the morning she had persistent recurrent pain. She received oxycodone without good relief. Patient also received 1 dose of Dilaudid. She was able to tolerate some breakfast. Her questions were answered. Exam Vital Signs (past 8 hours): Oxygen Delivery Method Room Air Oxygen Flow Rate 0 Narrative Exam Narrative: Tearful female Lungs: Clear to auscultation Cardiac exam: Regular rate and rhythm normal S1-S2 Abdomen: Soft, mildly tender in the right lower quadrant no rebound tenderness no board-like rigidity Extremities: No edema Objective Labs Result Diagrams: 03/02/20 05:55 02/29/20 22:55 Assessment & Plan Assessment & Plan narrative: 1. Abdominal pain, etiology unclear no evidence of appendicitis, torsion, or ectopic noted on exploratory laparotomy 2. Hypothyroid Plan patient will be discharged home today with oxycodone and Zofran. She should follow-up with her OB next week Quality VTE Deep Vein Thrombosis/Pulmonary Embolism Present on Admission: No
== END 2020-03-02 13:18 | disposition home or self-care (01) ==
LOC: ED 22:39 → AC 03-01 03:35
PROVIDERS: Internal Medicine; Obstetrics & Gynecology; Admitting Provider Nurse Practitioner Family; Emergency Provider Emergency Medicine; Referring Provider Emergency Medicine; Visit Provider Nurse Practitioner Family
PROC: (CPT 49320; principal; 2020-03-01 15:15)
DX: K66.0 Peritoneal adhesions (postprocedural) (postinfection) (principal); R10.31 Right lower quadrant pain; O46.8X1 Other antepartum hemorrhage, first trimester; Z3A.01 Less than 8 weeks gestation of pregnancy; E03.9 Hypothyroidism, unspecified; N83.11 Corpus luteum cyst of right ovary; Z11.59 Encounter for screening for other viral diseases
CPT/HCPCS: 49329; 36415; 74177; 76801; 76817; 76856; 80053; 81001; 84702; 85025; 87491; 87591; 87635; 96361; 96374; 96375; 96376; 99233; 99284; G0378; J0330; J0690; J1100; J1170; J2270; J2405; J2704; J3010; Q9967

== ENCOUNTER 2020-09-25 05:20 | Emergency (ER) | payer OTHER, SELFPAY ==
[2020-03-01 04:24] VITALS: BMI 26.6
[2020-09-25] VITALS (25 sets, daily range): BP systolic 81–115; BP diastolic 48–82; PULSE 61–97; RESP 16–26; TEMP 36.4; O2SAT 91–100; BMI 25.7
--- NOTE | 2020-09-25 05:29 | ED.PREGNANCY ---
HPI - <Leslee Loco, - Last Filed: 09/25/20 18:06> General Chief complaint: Back Pain/Injury Stated complaint: Pain in right side 14 weeks Time Seen by Provider: 09/25/20 05:21 Source: patient, family () and old records reviewed Mode of arrival: Ambulatory Limitations: no limitations History of Present Illness HPI Narrative: This is a 30 year old female at 14 weeks who comes to the emergency department with complaint of sudden onset of right flank and later right-sided abdominal pain. Patient states that it started last night about 9:00 p.m.. It has become consistent and quite painful. Patient denies any fevers, she denies any chills. She denies any chest pain or shortness of breath. She has been nauseated but not actively vomiting. Patient states she has had normal bowel movements. She denies any melena or hematochezia. She noted some dysuria and frequency about 7-10 days ago which then improved. She denies any recently. No urgency or sense of hesitancy. Patient has denies any vaginal bleeding, discharge or fluid leakage. Patient states she takes medication for hypothyroidism and her . She did have an exploratory laparotomy after having significant and severe abdominal pain during a miscarriage, there was concern about bowel obstruction and ultimately had evaluation with no clear cause of her abdominal pain found. Patient has been following with Dr. Crocker for her care. Related Data Home Medications Medication Instructions Recorded Confirmed levothyroxine 100 mcg PO DAILY 02/29/20 02/29/20 Previous Rx's Medication Instructions Recorded oxycodone-acetaminophen [Percocet] 1 tab PO Q6H PRN #14 tab 02/27/20 acetaminophen 650 mg PO Q4HR PRN #14 tab 03/02/20 ondansetron HCl [Zofran] 4 mg PO Q8H #20 tab 03/02/20 oxycodone 5 mg PO Q6H PRN #20 cap 03/02/20 ondansetron 4 mg PO Q8H PRN #10 tab 09/25/20 oxycodone-acetaminophen [Percocet] 1 tab PO Q6H PRN #10 tab 09/25/20 Allergies Allergy/AdvReac Type Severity Reaction Status Date / Time No Known Drug Allergies Allergy Verified 03/01/20 15:57 Review of Systems <Leslee Vo BradymilagroDO - Last Filed: 09/25/20 18:06> Review of Systems ROS Unobtainable: All systems reviewed & are unremarkable except as noted in HPI and below Exam <Leslee LocoDO - Last Filed: 09/25/20 18:06> Narrative Exam Narrative: GENERAL: Alert and oriented x three, well-nourished female moderate distress. Patient ambulated into the department. HEENT: Head normocephalic, atraumatic, EOMI, pupils reactive, face symmetric, moist mucous membranes NECK: Supple, full range of motion CARDIOVASCULAR: Regular rate and rhythm without murmurs, rubs or gallops. RESPIRATORY: Breath sounds equal bilaterally, no wheezes rales or rhonchi. ABDOMEN: Soft, positive for right upper quadrant, right lower quadrant and the left lower quadrant tenderness. Normoactive bowel sounds all 4 quadrants. No guarding or rebound, rigidity, no mass. Gravid. : Mild right CVA tenderness, no left CVA tenderness. EXTREMITIES: Normal range of motion, no clubbing or edema. Neurovascularly intact NEUROLOGICAL: Cranial nerves II through XII grossly intact. Moving all extremities. SKIN: Warm, dry, no petechiae, no rashes or lesions. Initial Vital Signs Initial Vital Signs: Vital Signs Temperature 97.5 F L 09/25/20 05:25 Pulse Rate 97 H 09/25/20 05:25 Respiratory Rate 23 09/25/20 05:25 Blood Pressure 115/82 09/25/20 05:25 Pulse Oximetry 100 09/25/20 05:25 <Brandee Boyer DO - Last Filed: 09/25/20 16:51> Initial Vital Signs Initial Vital Signs: Vital Signs Temperature 97.5 F L 09/25/20 05:25 Pulse Rate 97 H 09/25/20 05:25 Respiratory Rate 23 09/25/20 05:25 Blood Pressure 115/82 09/25/20 05:25 Pulse Oximetry 100 09/25/20 05:25 Course <Leslee LocoDO - Last Filed: 09/25/20 18:06> Orders Ordered: ED Orders 09/25/20 09:53 MR abdomen pelvis wo con Stat Discontinued Medications Hydromorphone HCl (Hydromorphone 0.5 Mg Inj) 0.5 mg IV NOW ONE Stop: 09/25/20 06:29 Last Admin: 09/25/20 06:31 Dose: 0.5 mg Documented by: FRANK Hydromorphone HCl (Hydromorphone 1 Mg Inj) 1 mg IV NOW ONE Stop: 09/25/20 07:57 Last Admin: 09/25/20 08:27 Dose: 1 mg Documented by: SAVAGE Sodium Chloride (Normal Saline 0.9%) 1,000 mls @ 1,000 mls/hr IV BOLUS ONE Stop: 09/25/20 06:37 Last Infusion: 09/25/20 07:53 Dose: 0 mls/hr Documented by: Admin: 09/25/20 05:49 Dose: 1,000 mls/hr Documented by: RFANK Sodium Chloride (Normal Saline 0.9%) 1,000 mls @ 1,000 mls/hr IV BOLUS ONE Stop: 09/25/20 08:55 Last Infusion: 09/25/20 10:02 Dose: 0 mls/hr Documented by: Admin: 09/25/20 08:27 Dose: 1,000 mls/hr Documented by: SAVAGE Metoclopramide HCl (Metoclopramide 10 Mg/2 Ml Inj) 10 mg IV NOW ONE Stop: 09/25/20 13:01 Last Admin: 09/25/20 13:10 Dose: 10 mg Documented by: CHARISSE Morphine Sulfate (Morphine 4 Mg/Ml Inj) 4 mg IV NOW ONE Stop: 09/25/20 05:41 Last Admin: 09/25/20 05:49 Dose: 4 mg Documented by: FRANK Morphine Sulfate (Morphine 4 Mg/Ml Inj) 4 mg IV NOW ONE Stop: 09/25/20 09:04 Last Admin: 09/25/20 09:07 Dose: 4 mg Documented by: SAVAGE Morphine Sulfate (Morphine 4 Mg/Ml Inj) 4 mg IV NOW ONE Stop: 09/25/20 09:54 Last Admin: 09/25/20 09:58 Dose: 4 mg Documented by: SAVAGE Morphine Sulfate (Morphine 4 Mg/Ml Inj) 4 mg IV NOW ONE Stop: 09/25/20 11:40 Last Admin: 09/25/20 12:20 Dose: 4 mg Documented by: CHARISSE Ondansetron HCl (Ondansetron 4 Mg/2 Ml Inj) 4 mg IV NOW ONE Stop: 09/25/20 05:41 Last Admin: 09/25/20 05:49 Dose: 4 mg Documented by: FRANK Ondansetron HCl (Ondansetron 4 Mg/2 Ml Inj) 4 mg IV NOW ONE Stop: 09/25/20 07:57 Last Admin: 09/25/20 08:27 Dose: 4 mg Documented by: SAVAGE Ondansetron HCl (Ondansetron 4 Mg/2 Ml Inj) 4 mg IV NOW ONE Stop: 09/25/20 12:17 Last Admin: 09/25/20 12:20 Dose: 4 mg Documented by: CHARISSE Vital Signs Vital signs: Vital Signs - 8 hr 09/25/20 10:30 09/25/20 11:00 09/25/20 11:01 Pulse Rate 70 68 64 Pulse Rate [Orthostatic Lying] Pulse Rate [Orthostatic Sitting] Pulse Rate [Orthostatic Standing] Blood Pressure 102/64 100/58 L Blood Pressure [Orthostatic Lying] Blood Pressure [Orthostatic Sitting] Blood Pressure [Orthostatic Standing] Pulse Oximetry 100 97 97 09/25/20 11:30 09/25/20 12:00 09/25/20 13:02 Pulse Rate 61 73 80 Pulse Rate [Orthostatic Lying] Pulse Rate [Orthostatic Sitting] Pulse Rate [Orthostatic Standing] Blood Pressure Blood Pressure [Orthostatic Lying] Blood Pressure [Orthostatic Sitting] Blood Pressure [Orthostatic Standing] Pulse Oximetry 98 97 100 09/25/20 13:13 09/25/20 13:30 09/25/20 13:38 Pulse Rate 78 70 66 Pulse Rate [Orthostatic Lying] Pulse Rate [Orthostatic Sitting] Pulse Rate [Orthostatic Standing] Blood Pressure 105/63 88/54 L 89/53 L Blood Pressure [Orthostatic Lying] Blood Pressure [Orthostatic Sitting] Blood Pressure [Orthostatic Standing] Pulse Oximetry 95 96 96 09/25/20 13:45 09/25/20 14:00 09/25/20 14:05 Pulse Rate 64 65 69 Pulse Rate [Orthostatic Lying] Pulse Rate [Orthostatic Sitting] Pulse Rate [Orthostatic Standing] Blood Pressure 83/51 L 81/48 L 107/58 L Blood Pressure [Orthostatic Lying] Blood Pressure [Orthostatic Sitting] Blood Pressure [Orthostatic Standing] Pulse Oximetry 96 97 91 09/25/20 14:15 09/25/20 14:27 09/25/20 14:30 Pulse Rate 63 70 67 Pulse Rate [Orthostatic Lying] Pulse Rate [Orthostatic Sitting] Pulse Rate [Orthostatic Standing] Blood Pressure 86/53 L 99/56 L 99/60 Blood Pressure [Orthostatic Lying] Blood Pressure [Orthostatic Sitting] Blood Pressure [Orthostatic Standing] Pulse Oximetry 97 98 96 09/25/20 14:45 09/25/20 15:01 09/25/20 15:02 Pulse Rate 62 75 Pulse Rate [Orthostatic Lying] 73 Pulse Rate [Orthostatic Sitting] 76 Pulse Rate [Orthostatic Standing] 75 Blood Pressure 96/56 L 103/65 Blood Pressure [Orthostatic Lying] 96/52 L Blood Pressure [Orthostatic Sitting] 102/66 Blood Pressure [Orthostatic Standing] 103/65 Pulse Oximetry 97 98 <Brandee Boyer DO - Last Filed: 09/25/20 16:51> Orders Ordered: ED Orders 09/25/20 09:53 MR abdomen pelvis wo con Stat Discontinued Medications Hydromorphone HCl (Hydromorphone 0.5 Mg Inj) 0.5 mg IV NOW ONE Stop: 09/25/20 06:29 Last Admin: 09/25/20 06:31 Dose: 0.5 mg Documented by: FRANK Hydromorphone HCl (Hydromorphone 1 Mg Inj) 1 mg IV NOW ONE Stop: 09/25/20 07:57 Last Admin: 09/25/20 08:27 Dose: 1 mg Documented by: SAVAGE Sodium Chloride (Normal Saline 0.9%) 1,000 mls @ 1,000 mls/hr IV BOLUS ONE Stop: 09/25/20 06:37 Last Infusion: 09/25/20 07:53 Dose: 0 mls/hr Documented by: Admin: 09/25/20 05:49 Dose: 1,000 mls/hr Documented by: FRANK Sodium Chloride (Normal Saline 0.9%) 1,000 mls @ 1,000 mls/hr IV BOLUS ONE Stop: 09/25/20 08:55 Last Infusion: 09/25/20 10:02 Dose: 0 mls/hr Documented by: Admin: 09/25/20 08:27 Dose: 1,000 mls/hr Documented by: SAVAGE Metoclopramide HCl (Metoclopramide 10 Mg/2 Ml Inj) 10 mg IV NOW ONE Stop: 09/25/20 13:01 Last Admin: 09/25/20 13:10 Dose: 10 mg Documented by: CHARISSE Morphine Sulfate (Morphine 4 Mg/Ml Inj) 4 mg IV NOW ONE Stop: 09/25/20 05:41 Last Admin: 09/25/20 05:49 Dose: 4 mg Documented by: FRANK Morphine Sulfate (Morphine 4 Mg/Ml Inj) 4 mg IV NOW ONE Stop: 09/25/20 09:04 Last Admin: 09/25/20 09:07 Dose: 4 mg Documented by: SAVAGE Morphine Sulfate (Morphine 4 Mg/Ml Inj) 4 mg IV NOW ONE Stop: 09/25/20 09:54 Last Admin: 09/25/20 09:58 Dose: 4 mg Documented by: SAVAGE Morphine Sulfate (Morphine 4 Mg/Ml Inj) 4 mg IV NOW ONE Stop: 09/25/20 11:40 Last Admin: 09/25/20 12:20 Dose: 4 mg Documented by: CHARISSE Ondansetron HCl (Ondansetron 4 Mg/2 Ml Inj) 4 mg IV NOW ONE Stop: 09/25/20 05:41 Last Admin: 09/25/20 05:49 Dose: 4 mg Documented by: FRANK Ondansetron HCl (Ondansetron 4 Mg/2 Ml Inj) 4 mg IV NOW ONE Stop: 09/25/20 07:57 Last Admin: 09/25/20 08:27 Dose: 4 mg Documented by: SAVAGE Ondansetron HCl (Ondansetron 4 Mg/2 Ml Inj) 4 mg IV NOW ONE Stop: 09/25/20 12:17 Last Admin: 09/25/20 12:20 Dose: 4 mg Documented by: CHARISSE Vital Signs Vital signs: Vital Signs - 8 hr 09/25/20 10:30 09/25/20 11:00 09/25/20 11:01 Pulse Rate 70 68 64 Pulse Rate [Orthostatic Lying] Pulse Rate [Orthostatic Sitting] Pulse Rate [Orthostatic Standing] Blood Pressure 102/64 100/58 L Blood Pressure [Orthostatic Lying] Blood Pressure [Orthostatic Sitting] Blood Pressure [Orthostatic Standing] Pulse Oximetry 100 97 97 09/25/20 11:30 09/25/20 12:00 09/25/20 13:02 Pulse Rate 61 73 80 Pulse Rate [Orthostatic Lying] Pulse Rate [Orthostatic Sitting] Pulse Rate [Orthostatic Standing] Blood Pressure Blood Pressure [Orthostatic Lying] Blood Pressure [Orthostatic Sitting] Blood Pressure [Orthostatic Standing] Pulse Oximetry 98 97 100 09/25/20 13:13 09/25/20 13:30 09/25/20 13:38 Pulse Rate 78 70 66 Pulse Rate [Orthostatic Lying] Pulse Rate [Orthostatic Sitting] Pulse Rate [Orthostatic Standing] Blood Pressure 105/63 88/54 L 89/53 L Blood Pressure [Orthostatic Lying] Blood Pressure [Orthostatic Sitting] Blood Pressure [Orthostatic Standing] Pulse Oximetry 95 96 96 09/25/20 13:45 09/25/20 14:00 09/25/20 14:05 Pulse Rate 64 65 69 Pulse Rate [Orthostatic Lying] Pulse Rate [Orthostatic Sitting] Pulse Rate [Orthostatic Standing] Blood Pressure 83/51 L 81/48 L 107/58 L Blood Pressure [Orthostatic Lying] Blood Pressure [Orthostatic Sitting] Blood Pressure [Orthostatic Standing] Pulse Oximetry 96 97 91 09/25/20 14:15 09/25/20 14:27 09/25/20 14:30 Pulse Rate 63 70 67 Pulse Rate [Orthostatic Lying] Pulse Rate [Orthostatic Sitting] Pulse Rate [Orthostatic Standing] Blood Pressure 86/53 L 99/56 L 99/60 Blood Pressure [Orthostatic Lying] Blood Pressure [Orthostatic Sitting] Blood Pressure [Orthostatic Standing] Pulse Oximetry 97 98 96 09/25/20 14:45 09/25/20 15:01 09/25/20 15:02 Pulse Rate 62 75 Pulse Rate [Orthostatic Lying] 73 Pulse Rate [Orthostatic Sitting] 76 Pulse Rate [Orthostatic Standing] 75 Blood Pressure 96/56 L 103/65 Blood Pressure [Orthostatic Lying] 96/52 L Blood Pressure [Orthostatic Sitting] 102/66 Blood Pressure [Orthostatic Standing] 103/65 Pulse Oximetry 97 98 MDM - OB/Uterine Contractions <Leslee Loco DO - Last Filed: 09/25/20 18:06> Lab Data Result diagrams: 09/25/20 05:56 09/25/20 05:56 Labs: Lab Results 09/25/20 09/25/20 09/25/20 Range/Units 05:27 05:56 05:56 WBC 6.5 (4.5-11.0) X10^3/uL RBC 4.29 (4.0-5.2) X10^6/uL Hgb 13.2 (12.0-16.0) g/dL Hct 38.9 (36-46) % MCV 90.7 (80-100) fL MCH 30.8 (26-34) PG MCHC 34.0 (30-36) % RDW 13.3 (11.6-14.8) % Plt Count 203 (150-400) X10^3/uL Neut % (Auto) 61.1 (50-75) % Lymph % (Auto) 31.2 (25-40) % [place] % (Auto) 5.9 (3-14) % Eos % (Auto) 1.4 L (2-4) % Baso % (Auto) 0.4 (0-2) % Neut # (Auto) 4000 (3607-5832) /uL Lymph # (Auto) 2000 (4488-2328) /uL [place] # (Auto) 400 (0-900) /uL Eos # (Auto) 100 (0-450) /uL Baso # (Auto) 0 (0-100) /uL PT 11.5 (10.1-12.7) SECONDS INR 1.0 (0.9-1.3) APTT 35 (26.4-36.2) SECONDS Sodium (137-145) mmol/L Potassium (3.4-5.1) mmol/L Chloride (98-107) mmol/L Carbon Dioxide (22-32) mmol/L BUN (7-17) mg/dL Creatinine (0.52-1.04) mg/dL Estimated GFR (>60) mL/min BUN/Creatinine Ratio (6-22) Glucose (70-100) mg/dL Calcium (8.4-10.2) mg/dL Total Bilirubin (0.2-1.3) mg/dL AST (14-36) IU/L ALT (<35) IU/L Alkaline Phosphatase (38-126) U/L Total Protein (6.3-8.2) g/dL Albumin (3.5-5.0) g/dL Globulin (1.7-4.1) g/dL Albumin/Globulin Ratio (1.0-2.8) Lipase (23-300) U/L HCG, Quant mIU/mL Urine RBC None seen (0-5/HPF) Urine WBC None seen (0-5/HPF) Ur Squamous Epith Cells 0-1 /hpf (0-5/HPF) Amorphous Sediment 2+ Urine Bacteria None seen (None) Ur Culture Indicated? Cult not indicated 09/25/20 09/25/20 Range/Units 05:56 05:56 WBC (4.5-11.0) X10^3/uL RBC (4.0-5.2) X10^6/uL Hgb (12.0-16.0) g/dL Hct (36-46) % MCV (80-100) fL MCH (26-34) PG MCHC (30-36) % RDW (11.6-14.8) % Plt Count (150-400) X10^3/uL Neut % (Auto) (50-75) % Lymph % (Auto) (25-40) % [place] % (Auto) (3-14) % Eos % (Auto) (2-4) % Baso % (Auto) (0-2) % Neut # (Auto) (5948-0652) /uL Lymph # (Auto) (2592-8066) /uL [place] # (Auto) (0-900) /uL Eos # (Auto) (0-450) /uL Baso # (Auto) (0-100) /uL PT (10.1-12.7) SECONDS INR (0.9-1.3) APTT (26.4-36.2) SECONDS Sodium 136 L (137-145) mmol/L Potassium 4.0 (3.4-5.1) mmol/L Chloride 107 (98-107) mmol/L Carbon Dioxide 21 L (22-32) mmol/L BUN 6 L (7-17) mg/dL Creatinine 0.52 (0.52-1.04) mg/dL Estimated GFR > 60.0 (>60) mL/min BUN/Creatinine Ratio 11.5 (6-22) Glucose 90 (70-100) mg/dL Calcium 9.4 (8.4-10.2) mg/dL Total Bilirubin 0.1 L (0.2-1.3) mg/dL AST 26 (14-36) IU/L ALT 11 (<35) IU/L Alkaline Phosphatase 28 L (38-126) U/L Total Protein 7.1 (6.3-8.2) g/dL Albumin 4.2 (3.5-5.0) g/dL Globulin 2.9 (1.7-4.1) g/dL Albumin/Globulin Ratio 1.4 (1.0-2.8) Lipase 56 (23-300) U/L HCG, Quant 25679 mIU/mL Urine RBC (0-5/HPF) Urine WBC (0-5/HPF) Ur Squamous Epith Cells (0-5/HPF) Amorphous Sediment Urine Bacteria (None) Ur Culture Indicated? Urine Dip Bedside Urine Glucose Negative Bedside Urine Bilirubin - Negative Bedside Urine Ketone - Negative Urine Specific [place] 1.010 Bedside Urine Occult Blood - Negative Bedside Urine pH 7.5 Bedside Urine Protein - Negative Bedside Urine Urobilinogen - Negative Bedside Urine Nitrite - Negative Bedside Urine Leukocytes - Negative Esterase <Brandee Boyer DO - Last Filed: 09/25/20 16:51> Lab Data Attestation: I reviewed the patient's lab results. Labs: Lab Results 09/25/20 09/25/20 09/25/20 Range/Units 05:27 05:56 05:56 WBC 6.5 (4.5-11.0) X10^3/uL RBC 4.29 (4.0-5.2) X10^6/uL Hgb 13.2 (12.0-16.0) g/dL Hct 38.9 (36-46) % MCV 90.7 (80-100) fL MCH 30.8 (26-34) PG MCHC 34.0 (30-36) % RDW 13.3 (11.6-14.8) % Plt Count 203 (150-400) X10^3/uL Neut % (Auto) 61.1 (50-75) % Lymph % (Auto) 31.2 (25-40) % [place] % (Auto) 5.9 (3-14) % Eos % (Auto) 1.4 L (2-4) % Baso % (Auto) 0.4 (0-2) % Neut # (Auto) 4000 (6956-0940) /uL Lymph # (Auto) 2000 (0795-0050) /uL [place] # (Auto) 400 (0-900) /uL Eos # (Auto) 100 (0-450) /uL Baso # (Auto) 0 (0-100) /uL PT 11.5 (10.1-12.7) SECONDS INR 1.0 (0.9-1.3) APTT 35 (26.4-36.2) SECONDS Sodium (137-145) mmol/L Potassium (3.4-5.1) mmol/L Chloride (98-107) mmol/L Carbon Dioxide (22-32) mmol/L BUN (7-17) mg/dL Creatinine (0.52-1.04) mg/dL Estimated GFR (>60) mL/min BUN/Creatinine Ratio (6-22) Glucose (70-100) mg/dL Calcium (8.4-10.2) mg/dL Total Bilirubin (0.2-1.3) mg/dL AST (14-36) IU/L ALT (<35) IU/L Alkaline Phosphatase (38-126) U/L Total Protein (6.3-8.2) g/dL Albumin (3.5-5.0) g/dL Globulin (1.7-4.1) g/dL Albumin/Globulin Ratio (1.0-2.8) Lipase (23-300) U/L HCG, Quant mIU/mL Urine RBC None seen (0-5/HPF) Urine WBC None seen (0-5/HPF) Ur Squamous Epith Cells 0-1 /hpf (0-5/HPF) Amorphous Sediment 2+ Urine Bacteria None seen (None) Ur Culture Indicated? Cult not indicated 09/25/20 09/25/20 Range/Units 05:56 05:56 WBC (4.5-11.0) X10^3/uL RBC (4.0-5.2) X10^6/uL Hgb (12.0-16.0) g/dL Hct (36-46) % MCV (80-100) fL MCH (26-34) PG MCHC (30-36) % RDW (11.6-14.8) % Plt Count (150-400) X10^3/uL Neut % (Auto) (50-75) % Lymph % (Auto) (25-40) % [place] % (Auto) (3-14) % Eos % (Auto) (2-4) % Baso % (Auto) (0-2) % Neut # (Auto) (7041-8528) /uL Lymph # (Auto) (5012-9158) /uL [place] # (Auto) (0-900) /uL Eos # (Auto) (0-450) /uL Baso # (Auto) (0-100) /uL PT (10.1-12.7) SECONDS INR (0.9-1.3) APTT (26.4-36.2) SECONDS Sodium 136 L (137-145) mmol/L Potassium 4.0 (3.4-5.1) mmol/L Chloride 107 (98-107) mmol/L Carbon Dioxide 21 L (22-32) mmol/L BUN 6 L (7-17) mg/dL Creatinine 0.52 (0.52-1.04) mg/dL Estimated GFR > 60.0 (>60) mL/min BUN/Creatinine Ratio 11.5 (6-22) Glucose 90 (70-100) mg/dL Calcium 9.4 (8.4-10.2) mg/dL Total Bilirubin 0.1 L (0.2-1.3) mg/dL AST 26 (14-36) IU/L ALT 11 (<35) IU/L Alkaline Phosphatase 28 L (38-126) U/L Total Protein 7.1 (6.3-8.2) g/dL Albumin 4.2 (3.5-5.0) g/dL Globulin 2.9 (1.7-4.1) g/dL Albumin/Globulin Ratio 1.4 (1.0-2.8) Lipase 56 (23-300) U/L HCG, Quant 11647 mIU/mL Urine RBC (0-5/HPF) Urine WBC (0-5/HPF) Ur Squamous Epith Cells (0-5/HPF) Amorphous Sediment Urine Bacteria (None) Ur Culture Indicated? Urine Dip Bedside Urine Glucose Negative Bedside Urine Bilirubin - Negative Bedside Urine Ketone - Negative Urine Specific [place] 1.010 Bedside Urine Occult Blood - Negative Bedside Urine pH 7.5 Bedside Urine Protein - Negative Bedside Urine Urobilinogen - Negative Bedside Urine Nitrite - Negative Bedside Urine Leukocytes - Negative Esterase Imaging Data US - abdomen: Radiologist's Impression: PROCEDURE: US ABDOMEN COMPLETE INDICATIONS: RIGHT FLANK AND RIGHT LOWER QUADRANT PAIN. 14 WEEKS TECHNIQUE: Real-time scanning was performed of the abdominal and retroperitoneal organs, with image documentation. COMPARISON: [facility], CT, CT ABDOMEN PELVIS W CON, 03/01/2020, 1:19. [facility], US, US ABDOMEN LIMITED, 02/27/2020, 8:13. FINDINGS: Liver: Liver is normal in size and homogeneous in echotexture. Gallbladder: Is unremarkable without gallstones or gallbladder wall thickening or pain on examination. Biliary ducts: Intrahepatic bile ducts are non-dilated. Extrahepatic bile duct caliber measures 1.7 mm at the level of the common hepatic duct and 5.9 mm at the level of the common bile duct. Normal is 6-7 mm or less in diameter, or 10 mm or less post-cholecystectomy. Pancreas: Visualized portions of the pancreas are sonographically normal. Spleen: Spleen is normal in size and homogeneous in echotexture. Kidneys: Kidneys are normal in size and echotexture. Right kidney measures 12.8 cm long; left kidney measures 11.0 cm long. No hydronephrosis or nephrolithiasis. No solid masses. Aorta: Visualized aorta is normal in caliber at less than 3 cm. Iliacs: Proximal common iliac arteries are not seen secondary to overlying bowel gas. IVC: Intrahepatic inferior vena cava is patent. Miscellaneous: No free abdominal fluid. IMPRESSION: Unremarkable abdominal ultrasound. US - OB: Radiologist's Impression: PROCEDURE: US OB <= 14 WEEKS FETUS INDICATIONS: RIGHT FLANK AND RIGHT LOWER QUADRANT PAIN. 14 WEEK . OUTSIDE/PRIOR DATING DATA: Last menstrual period (LMP): Unknown LMP-based estimated date of delivery ([place]): Unknown First dating scan (date and location): 08/20/2020, [facility]. Estimated date of delivery ([place]) from first dating scan: 04/07/2021. TECHNIQUE: Real-time scanning was performed of the fetus and maternal pelvic organs, with image documentation. Endovaginal scanning was also performed to better visualize the fetus and maternal ovaries. COMPARISON: [facility], US, US OB < 14 WEEKS + OB TRANSVAG, 08/20/2020, 3:19. [facility], US, US OB <= 14 WEEKS FETUS, 02/29/2020, 23:19. FINDINGS: Embryo: Late living 1st trimester intrauterine with a crown-rump length measuring 12 weeks 1 day and a heartbeat measuring 157 beats per minute. Measurement variability in dating: +/- 4 weeks by LMP, +/- 7 days by mean sac diameter (use before 6 weeks gestation if crown-rump length not able to be measured), +/- 5 days by crown-rump length (up to 8 weeks 6 days gestation), +/- 7 days by crown-rump length (up to 13 weeks 6 days gestation). Maternal organs: Ovaries not well seen . IMPRESSION: Living late 1st trimester intrauterine with crown-rump length and heartbeat measuring 12 weeks 1 day by current measurements. No evidence of complications. Comment: Preliminary findings were reported by the welder railcar mechanic to the referring provider at the time of study completion. Dictated by: Darius Vasquez M.D. on 09/25/2020 at 8:24 Approved by: Darius Vasquez M.D. on 09/25/2020 at 8:2 MR abdomen: Radiologist's Impression: PROCEDURE: MR ABDOMEN PELVIS WO CON COMPARISON: [facility], MR, MR ABDOMEN PELVIS WO CON, 02/27/2020, 12:40. INDICATIONS: RLQ pain with 14 weeks FINDINGS: An intrauterine is noted. There is a normal appendix noted in the right lower quadrant. No significant right hydronephrosis. No other significant findings are identified. Normal bone marrow signal. Normal appearance of visualized organs. IMPRESSION: 1. No evidence of acute appendicitis. 2. Intrauterine . 3. No evidence of acute abdominal process. Dictated by: Darius Vasquez M.D. on 09/25/2020 at 12:51 MDM Narrative Medical decision making narrative: I received sign-out from Dr. Loco I have seen evaluated patient myself. She is quite tender along her right lower quadrant radiating up to her right upper quadrant. At some along her right flank. Ultrasound is pending she still in quite a bit of pain. Ultrasounds are unremarkable. Patient has no leukocytosis or fever. Concern still for other etiology. MR is not available until 4:00 p.m. is currently 10:00 a.m. pain is not well controlled. MR was conveniently done at 12:30 p.m. and was fortunately unremarkable. Patient has required multiple doses of nausea medication along with pain medication. She was given the option of staying in the hospital versus going home. At this time she is electing to be discharged home with return precautions. [id number] Dr. Walker updated patient's symptoms test results at this time unclear what is causing her pain. Agrees with discharge and close follow-up. Discharge Plan Departure Patient Disposition: Home Clinical Impression: Abdominal pain during Instructions: DI for Abdominal Pain -- Early Activity Restrictions/Additional Instructions: *You have been diagnosed with abdominal pain in *What to do: Increase activity as tolerated. Blood work CT ultrasound and MRI do not show any abnormality. It is unclear what is causing her pain at this time. Increase fluid and food intake as tolerated. *Continue to take medications as directed Zofran 4 mg every 8 hours if needed for nausea or vomiting Percocet 1 tablet every 6 hours if needed for severe pain *Follow up with your primary care provider in 2-3 days *Return to ER if you should have increasing pain persistent vomiting, fever or any new, worsening or concerning symptoms CONTROLLED SUBSTANCE DISCHARGE (Narcotoic/benzodiazepine/Flexeril/Phenergan) 1. You have been prescribed narcotic medications, it does have acetaminophen/Tylenol/paracetamol in it, DO NOT TAKE MORE THAN 4,00mg in 24 hours of Tylenol. TRAMADOL DOES NOT CONTAIN TYLENOL 2. Please understand that we cannot provide further refills of narcotics, benzodiazepines or controlled substances through the ED and her pain management will need to be through your provider. 3. While on these medications you cannot drive or operate heavy machinery. 4. You cannot sign legal documents or perform any duties such as this. 5. As long as you're taking opiate pain medications he should also be taking a stool softener such as Colace, Dulcolax, MiraLAX or prune juice, to help avoid constipation. Prescriptions: New oxycodone-acetaminophen [Percocet] 5-325 mg tablet 1 tab PO Q6H PRN (Reason: pain) Qty: 10 RF: 0 ondansetron 4 mg tablet,disintegrating 4 mg PO Q8H PRN (Reason: nausea and vomiting) Qty: 10 RF: 0 No Action oxycodone-acetaminophen [Percocet] 7.5-325 mg tablet 1 tab PO Q6H PRN (Reason: pain) Qty: 14 RF: 0 levothyroxine 100 mcg tablet 100 mcg PO DAILY RF: 0 acetaminophen 325 mg Tablet 650 mg PO Q4HR PRN (Reason: Fever/Mild Pain (1-3)) Qty: 14 RF: 0 oxycodone 5 mg capsule 5 mg PO Q6H PRN (Reason: pain) Qty: 20 RF: 0 ondansetron HCl [Zofran] 4 mg tablet 4 mg PO Q8H Qty: 20 RF: 0 ED Sign-out <Leslee Loco, DO - Last Filed: 09/25/20 18:06> Sign Out Provider Sign Out Attestation: Patient Sign Out occurred on September 25 at 0700. Patient's care was discussed, and care was transferred from Dr. Loco to Dr. Boyer. Labs resulted and US imaging is pending.
--- NOTE | 2020-09-25 05:38 | DI.US.S_ITS ---
PROCEDURE: US ABDOMEN COMPLETE INDICATIONS: RIGHT FLANK AND RIGHT LOWER QUADRANT PAIN. 14 WEEKS TECHNIQUE: Real-time scanning was performed of the abdominal and retroperitoneal organs, with image documentation. COMPARISON: [facility], CT, CT ABDOMEN PELVIS W CON, 03/01/2020, 1:19. [facility], US, US ABDOMEN LIMITED, 02/27/2020, 8:13. FINDINGS: Liver: Liver is normal in size and homogeneous in echotexture. Gallbladder: Is unremarkable without gallstones or gallbladder wall thickening or pain on examination. Biliary ducts: Intrahepatic bile ducts are non-dilated. Extrahepatic bile duct caliber measures 1.7 mm at the level of the common hepatic duct and 5.9 mm at the level of the common bile duct. Normal is 6-7 mm or less in diameter, or 10 mm or less post-cholecystectomy. Pancreas: Visualized portions of the pancreas are sonographically normal. Spleen: Spleen is normal in size and homogeneous in echotexture. Kidneys: Kidneys are normal in size and echotexture. Right kidney measures 12.8 cm long; left kidney measures 11.0 cm long. No hydronephrosis or nephrolithiasis. No solid masses. Aorta: Visualized aorta is normal in caliber at less than 3 cm. Iliacs: Proximal common iliac arteries are not seen secondary to overlying bowel gas. IVC: Intrahepatic inferior vena cava is patent. Miscellaneous: No free abdominal fluid. IMPRESSION: Unremarkable abdominal ultrasound. Dictated by: Darius Vasquez M.D. on 09/25/2020 at 8:30 Approved by: Darius Vasquez M.D. on 09/25/2020 at 8:32
--- NOTE | 2020-09-25 05:39 | DI.US.S_ITS ---
PROCEDURE: US OB <= 14 WEEKS FETUS INDICATIONS: RIGHT FLANK AND RIGHT LOWER QUADRANT PAIN. 14 WEEK . OUTSIDE/PRIOR DATING DATA: Last menstrual period (LMP): Unknown LMP-based estimated date of delivery ([place]): Unknown First dating scan (date and location): 08/20/2020, [facility]. Estimated date of delivery ([place]) from first dating scan: 04/07/2021. TECHNIQUE: Real-time scanning was performed of the fetus and maternal pelvic organs, with image documentation. Endovaginal scanning was also performed to better visualize the fetus and maternal ovaries. COMPARISON: [facility], OB < 14 WEEKS + OB TRANSVAG, 08/20/2020, 3:19. [facility], OB <= 14 WEEKS FETUS, 02/29/2020, 23:19. FINDINGS: Embryo: Late living 1st trimester intrauterine with a crown-rump length measuring 12 weeks 1 day and a heartbeat measuring 157 beats per minute. Measurement variability in dating: +/- 4 weeks by LMP, +/- 7 days by mean sac diameter (use before 6 weeks gestation if crown-rump length not able to be measured), +/- 5 days by crown-rump length (up to 8 weeks 6 days gestation), +/- 7 days by crown-rump length (up to 13 weeks 6 days gestation). Maternal organs: Ovaries not well seen . IMPRESSION: Living late 1st trimester intrauterine with crown-rump length and heartbeat measuring 12 weeks 1 day by current measurements. No evidence of complications. Comment: Preliminary findings were reported by the quality control operator to the referring provider at the time of study completion. Dictated by: Darius Vasquez M.D. on 09/25/2020 at 8:24 Approved by: Darius Vasquez M.D. on 09/25/2020 at 8:28
--- NOTE | 2020-09-25 05:45 | PC.NURSE ---
PT reports history of UTIs and kidney stones during . states pain in right flank radiating down to rt lower quadrant. pt reports nausea increasing through out the night.
[2020-09-25 05:48] LABS: Bacteria Urine None Seen; RBC Urine None Seen (0-5/HPF); WBC Urine None Seen (0-5/HPF)
[2020-09-25] MEDS: ONDANSETRON 4 MG/2 ML INJ IV ×3 (05:49→12:20)
[2020-09-25] MEDS: MORPHINE 4 MG/ML INJ IV ×4 (05:49→12:20)
[2020-09-25] MEDS: SODIUM CHLORIDE 0.9% 1,000 ML 1000 ML IV ×2 (05:49→08:27)
[2020-09-25 06:01] LABS: Add Manual Diff / Slide Review NO; Basophils Absolute Auto 0 /uL (0-100); Basophils Percent Auto 0.4 % (0-2); Eosinophils Absolute Auto 100 /uL (0-450); Eosinophils Percent Auto 1.4 % (2-4); Hematocrit 38.9 % (36-46); Hemoglobin 13.2 g/dL (12.0-16.0); Lymphocytes Absolute Auto 2000 /uL (1100-4500); Lymphocytes Percent Auto 31.2 % (25-40); Mean Corpuscular Hemoglobin 30.8 PG (26-34); Mean Corpuscular Volume 90.7 fL (80-100); Monocytes Absolute Auto 400 /uL (0-900); Monocytes Percent Auto 5.9 % (3-14); Neutrophils Absolute Auto 4000 /uL (1500-7000); Neutrophils Percent Auto 61.1 % (50-75); Platelet Count 203 X10^3/uL (150-400); Red Blood Cell Count 4.29 X10^6/uL (4.0-5.2); Red Cell Distribution Width 13.3 % (11.6-14.8); White Blood Cell Count 6.5 X10^3/uL (4.5-11.0)
[2020-09-25 06:05] LABS: Amorphous Sediment Urine 2+; Squamous Epithelial Cell Urine 0-1 /HPF (0-5/HPF)
[2020-09-25 06:06] LABS: Culture Indicated Urine Cult Not Indicated
[2020-09-25 06:11] LABS: Prothrombin Time 11.5 SECONDS (10.1-12.7)
[2020-09-25 06:13] LABS: PTT Partial Thromboplastin Tim 35 SECONDS (26.4-36.2)
[2020-09-25 06:15] LABS: Alanine Aminotransferase 11 IU/L (<35); Albumin 4.2 g/dL (3.5-5.0); Albumin Globulin Ratio 1.4 (1.0-2.8); Alkaline Phosphatase 28 U/L (38-126); Aspartate Aminotransferase 26 IU/L (14-36); BUN Creatinine Ratio 11.5 (6-22); Bilirubin Total 0.1 mg/dL (0.2-1.3); Blood Urea Nitrogen 6 mg/dL (7-17); Calcium 9.4 mg/dL (8.4-10.2); Carbon Dioxide 21 mmol/L (22-32); Chloride 107 mmol/L (98-107); Estimated Glomerular Filt Rate > 60.0 mL/min (>60); Globulin 2.9 g/dL (1.7-4.1); Glucose 90 mg/dL (70-100); HEMOLYSIS < 15 (0-50); Lipase 56 U/L (23-300); Sodium 136 mmol/L (137-145); Total Protein 7.1 g/dL (6.3-8.2)
[2020-09-25] MEDS: HYDROMORPHONE 0.5 MG INJ IV (06:31)
[2020-09-25 06:56] LABS: HCG Quantitative /Beta subunit 50330 mIU/mL
[2020-09-25] MEDS: HYDROMORPHONE 1 MG INJ IV (08:27)
--- NOTE | 2020-09-25 09:53 | DI.MRI.S_ITS ---
PROCEDURE: MR ABDOMEN PELVIS WO CON COMPARISON: [facility], MR, MR ABDOMEN PELVIS WO CON, 02/27/2020, 12:40. INDICATIONS: RLQ pain with 14 weeks FINDINGS: An intrauterine is noted. There is a normal appendix noted in the right lower quadrant. No significant right hydronephrosis. No other significant findings are identified. Normal bone marrow signal. Normal appearance of visualized organs. IMPRESSION: 1. No evidence of acute appendicitis. 2. Intrauterine . 3. No evidence of acute abdominal process. Dictated by: Darius Vasquez M.D. on 09/25/2020 at 12:51 Approved by: Darius Vasquez M.D. on 09/25/2020 at 12:53
--- NOTE | 2020-09-25 10:05 | PC.NURSE ---
MRI questionaire filled out
--- NOTE | 2020-09-25 12:26 | PC.NURSE ---
Pt to MRI Via
[2020-09-25] MEDS: METOCLOPRAMIDE 10 MG/2 ML INJ IV (13:10)
== END 2020-09-25 15:27 | disposition home or self-care (01) ==
PROVIDERS: Emergency Medicine; Emergency Provider Emergency Medicine
DX: O26.891 Other specified pregnancy related conditions, first trimester (principal); R10.31 Right lower quadrant pain; R10.11 Right upper quadrant pain; R11.0 Nausea; Z3A.14 14 weeks gestation of pregnancy
CPT/HCPCS: 36415; 72195; 76700; 76801; 80053; 81003; 81015; 83690; 84702; 85025; 85610; 85730; 96361; 96374; 96375; 96376; 99284; J1170; J2270; J2405; J2765

== ENCOUNTER 2020-10-18 03:01 | Emergency (ER) | payer OTHER, SELFPAY ==
[2020-03-01 04:24] VITALS: BMI 26.6
--- NOTE | 2020-10-18 03:06 | ED.ABDPAIN ---
HPI - Abdominal Pain General Chief Complaint: Abdominal Pain Stated Complaint: pain in back and sides Time Seen by Provider: 10/18/20 03:03 Source: patient Mode of arrival: Ambulatory Limitations: no limitations History of Present Illness HPI narrative: 22-year-old female nonsmoker with history of partial bowel obstruction is a at 16 weeks and presents with pain for the past 3 hours or so. Her story is a bit difficult to follow as she has been having episodes of abdominal, flank and lower abdominal pain for much of her and has visit at [facility] as well as this hospital for the same relative complaints. She states at one visit she was told she had swelling in her kidney and ureter. She is a very poor historian and requires prompting The patient was seen and evaluated here on September 25 under very similar circumstances had an extremely thorough workup including ultrasounds as well as MRI and gynecologic consultation. She states her pain is really never gone away and that was largely her right side and for the past 3 hours she has bilateral lower pelvic pain that is about a 6 or 7/10, worsened with motion but also seems to come and go without any pattern. Additionally she has bilateral back pain overlying her kidneys and states it hurts her to lay flat and improves when sitting up. She vomited once and states that did nothing to change her symptoms. She has had no fever chills and is not dizzy nor weak or lightheaded. She denies any problems with her blood pressure is and has had no fever, chills nor jaundice. She denies dysuria, frequency or urgency. She has had no constipation or diarrhea. She denies any vaginal bleeding or leakage of fluid. MD complaint: flank pain Onset (ago): hour(s) Pain Consistency: constant and intermittent Location: LLQ, RLQ, L flank and R flank Severity: severe Severity scale (1-10): 7 Quality: aching Radiation: bilateral flank Migration to: no migration Relieving factors: rest Exacerbating factors: movement Associated symptoms: nausea and vomiting Treatments prior to arrival: other Related Data Home Medications Medication Instructions Recorded Confirmed levothyroxine 100 mcg PO DAILY 02/29/20 02/29/20 Previous Rx's Medication Instructions Recorded oxycodone-acetaminophen [Percocet] 1 tab PO Q6H PRN #14 tab 02/27/20 acetaminophen 650 mg PO Q4HR PRN #14 tab 03/02/20 ondansetron HCl [Zofran] 4 mg PO Q8H #20 tab 03/02/20 oxycodone 5 mg PO Q6H PRN #20 cap 03/02/20 ondansetron 4 mg PO Q8H PRN #10 tab 09/25/20 oxycodone-acetaminophen [Percocet] 1 tab PO Q6H PRN #10 tab 09/25/20 Allergies Allergy/AdvReac Type Severity Reaction Status Date / Time No Known Drug Allergies Allergy Verified 03/01/20 15:57 Review of Systems Constitutional Constitutional: Denies chills, Denies fatigue, Denies fever(s), Denies frequent falls, Denies lethargy and Denies weakness Eyes Eyes: Denies change in vision, Denies eye discharge, Denies irritation and Denies loss of vision ENT Ears, Nose, Mouth, and Throat: Denies change in voice, Denies dizziness, Denies neck pain, Denies sore throat and Denies throat swelling Cardiovascular Cardiovascular: Denies chest pain, Denies irregular heart rhythm, Denies lightheadedness, Denies palpitations, Denies dyspnea, Denies dyspnea on exertion and Denies orthopnea Respiratory Respiratory: Denies cough, Denies dyspnea, Denies dyspnea on exertion and Denies wheezing Gastrointestinal Gastrointestinal: Denies abdominal pain, Denies change in bowel habits, Denies diarrhea, Denies nausea and Denies vomiting Genitourinary Genitourinary: Reports flank pain Genitourinary: Reports pelvic pain and Reports flank pain Musculoskeletal Musculoskeletal: Reports back pain, Denies neck pain and Denies numbness Integumentary/Breasts Skin/Breast: Denies pruritus, Denies erythema, Denies rash and Denies wounds Neurologic Neurologic: Denies behavioral changes, Denies confusion, Denies dizziness, Denies frequent falls, Denies loss of vision, Denies numbness and Denies weakness Psychiatric Psychiatric: Denies anxiety, Denies behavioral changes, Denies confusion, Denies depression, Denies homicidal ideation and Denies suicidal ideation Endocrine Endocrine: Denies fatigue, Denies flushing and Denies palpitations Hematologic/Lymphatic Hematologic/Lymphatic: Denies easy bruising Allergic/Immunologic Allergic/Immunologic: Denies urticaria, Denies throat swelling and Denies wheezing Patient History Medical History (Updated 10/18/20 @ 04:55 by Luis Corcoran DO) Renal stones Vaginal delivery Surgical History delivery delivered Social History household members: spouse and children Smoking Status: Never smoker alcohol intake: former Smoking Status: Never smoker alcohol intake frequency: 0-2 drinks per day Substance Use Type: does not use Exam Narrative Exam Narrative: GENERAL: [30] year old patient appears stated age. Well-nourished, well-developed patient, in moderate distress, moving slowly, clearly uncomfortable HEAD: Atraumatic. Normocephalic. EYES: Pupils equal round and reactive. Extraocular motions intact. No scleral icterus. No injection or drainage. ENT: Nose without bleeding, purulent drainage. Throat without erythema, tonsillar hypertrophy or exudate. Airway patent. NECK: Trachea midline. Non tender CARDIOVASCULAR: Regular rate and rhythm without murmurs, gallops, or rubs. RESPIRATORY: Clear to auscultation. Breath sounds equal bilaterally. No wheezes, rales, or rhonchi. GASTROINTESTINAL: Abdomen soft, gravid below umbilicus, nondistended. Suprapubic tenderness, right lower and left lower quadrant tenderness EXTREMITIES: No edema or joint tenderness. BACK: Bilateral CVA tenderness NEURO: AOx3. SKIN: No rash or erythema of visible areas Initial Vital Signs Initial Vital Signs: Vital Signs Temperature 97.7 F 10/18/20 03:15 Pulse Rate 92 H 10/18/20 03:15 Respiratory Rate 18 10/18/20 03:15 Blood Pressure 118/91 H 10/18/20 03:15 Pulse Oximetry 99 10/18/20 03:15 Course Course Course Narrative: records requested from [facility] (10/06) and [facility] (10/10) [facility] - pelvic exam, painful, multiple rounds of dilaudid and morphine. US notes IUP, FHTs 150. Formal US unremarkable, good ovarian flow. DC home [facility] [place] - normal labs, US, MRI, multiple opioids. DC home with return precautions Orders Ordered: ED Orders 10/18/20 03:15 US renal complete Stat Complete Blood Count AUTO DIFF Stat Comprehensive Metabolic Panel Stat Lipase Stat 10/18/20 03:20 Urine Drug Screen, Rapid Stat 10/18/20 03:36 US OB limited Stat Sodium Chloride (Normal Saline 0.9%) 1,000 mls @ 125 mls/hr IV CONT ELIZABETH Last Admin: 10/18/20 03:38 Dose: 125 mls/hr Documented by: Consultations Consultation #1: Discuss with on-call OB Gyne (Aaron). With had an extensive discussion regarding this patient's history and physical as well as labs and imaging for this and multiple other visits. She does share the opinion that lack of findings after this duration are reassuring but agrees to come see the patient at the bedside wishing to perform a pelvic exam and lend her expertise. Please see her note for details. Based on her exam she is most concerned about structural pain and had lengthy discussion with patient about continuing physical therapy for pelvic floor exercises and gives reassurance that as the progresses she will likely game bony structural support with the expectation that symptoms will improve. Vital Signs Vital signs: Vital Signs - 8 hr 10/18/20 03:15 Temperature 97.7 F Pulse Rate 92 H Respiratory Rate 18 Blood Pressure 118/91 H Pulse Oximetry 99 MDM - Abdominal Pain Lab Data Result diagrams: 10/18/20 03:30 10/18/20 03:30 Labs: Lab Results 10/18/20 10/18/20 10/18/20 Range/Units 03:20 03:30 03:30 WBC 6.7 (4.5-11.0) X10^3/uL RBC 4.28 (4.0-5.2) X10^6/uL Hgb 13.1 (12.0-16.0) g/dL Hct 39.1 (36-46) % MCV 91.2 (80-100) fL MCH 30.7 (26-34) PG MCHC 33.6 (30-36) % RDW 13.1 (11.6-14.8) % Plt Count 199 (150-400) X10^3/uL Neut % (Auto) 60.1 (50-75) % Lymph % (Auto) 33.0 (25-40) % [place] % (Auto) 5.3 (3-14) % Eos % (Auto) 1.3 L (2-4) % Baso % (Auto) 0.3 (0-2) % Neut # (Auto) 4000 (2509-2089) /uL Lymph # (Auto) 2200 (2186-4316) /uL [place] # (Auto) 400 (0-900) /uL Eos # (Auto) 100 (0-450) /uL Baso # (Auto) 0 (0-100) /uL Sodium 136 L (137-145) mmol/L Potassium 3.9 (3.4-5.1) mmol/L Chloride 106 (98-107) mmol/L Carbon Dioxide 24 (22-32) mmol/L BUN 7 (7-17) mg/dL Creatinine 0.55 (0.52-1.04) mg/dL Estimated GFR > 60.0 (>60) mL/min BUN/Creatinine Ratio 12.7 (6-22) Glucose 88 (70-100) mg/dL Calcium 9.1 (8.4-10.2) mg/dL Total Bilirubin 0.2 (0.2-1.3) mg/dL AST 21 (14-36) IU/L ALT 11 (<35) IU/L Alkaline Phosphatase 28 L (38-126) U/L Total Protein 7.2 (6.3-8.2) g/dL Albumin 4.2 (3.5-5.0) g/dL Globulin 3.0 (1.7-4.1) g/dL Albumin/Globulin Ratio 1.4 (1.0-2.8) Lipase 58 (23-300) U/L U Opiates 300ng/mL cut Positive H (Negative) Ur Oxycodone Screen Negative (Negative) Urine Methadone Screen Negative (Negative) Ur Barbiturates Screen Negative (Negative) U Tricyclic Antidepress Negative (Negative) Ur Phencyclidine Scrn Negative (Negative) Ur Amphetamines Screen Negative (Negative) U Methamphetamines Scrn Negative (Negative) Ur MDMA Scrn (Ecstasy) Negative (Negative) U Benzodiazepines Scrn Negative (Negative) Urine Cocaine Screen Negative (Negative) U Marijuana (THC) Screen Negative (Negative) Point of care testing: Urine Dip Bedside Urine Glucose Negative Bedside Urine Bilirubin - Negative Bedside Urine Ketone - Negative Urine Specific [place] 1.025 Bedside Urine Occult Blood - Negative Bedside Urine pH 6.0 Bedside Urine Protein - Negative Bedside Urine Urobilinogen - Negative Bedside Urine Nitrite - Negative Bedside Urine Leukocytes - Negative Esterase MDM Narrative Medical decision making narrative: 30-year-old female at 16 weeks with acute on chronic right lower quadrant and left lower quadrant pain, flank pain and bilateral CVA tenderness. Multiple diagnoses considered including round ligament pain, other structural and pelvic floor discomfort as well as gynecologic in OB emergency such as placenta previa, abruption which are thought unlikely given lack of findings on ultrasound. Hydronephrosis in considered as well as pyelonephritis and even kidney stones but thought less likely given lack of findings in urine and on renal ultrasound. Appendicitis and bowel problems considered but thought less likely given history, physical and labs. Patient has had multiple visits with very extensive and thorough evaluations including multiple ultrasounds, MRIs and lab evaluations which have been largely very reassuring. Patient has close follow-up with her OB provider and has seen him already 3 times this month. The prevailing diagnosis is high suspicion of structural pain and patient has existing relationship with physical therapist for pelvic floor strengthening. She has been given return precautions and through she is frustrated by a lack of evidence to suggest a specific therapy would provide immediate relief she is reassured by today's visit. Her questions have been answered to her apparent satisfaction. Discharge Plan Departure Patient Disposition: Home Clinical Impression: Pelvic pain affecting Qualifiers: Trimester: second trimester Qualified Code(s): O26.892 - Other specified related conditions, second trimester Instructions: Chronic Pelvic Pain-Female Activity Restrictions/Additional Instructions: *You have been diagnosed with [ acute on chronic pelvic pain in ] *What to do: *Continue to take medications as directed *Follow up with your primary care provider in 2-3 days, call for an appointment. Let them know you were seen in the Emergency Department and that we ask that you be seen in follow up. Please continue with the pelvic floor physical therapy *Return to ER if you should have any new, worsening or concerning symptoms Prescriptions: No Action oxycodone-acetaminophen [Percocet] 5-325 mg tablet 1 tab PO Q6H PRN (Reason: pain) Qty: 10 RF: 0 ondansetron 4 mg tablet,disintegrating 4 mg PO Q8H PRN (Reason: nausea and vomiting) Qty: 10 RF: 0 oxycodone-acetaminophen [Percocet] 7.5-325 mg tablet 1 tab PO Q6H PRN (Reason: pain) Qty: 14 RF: 0 levothyroxine 100 mcg tablet 100 mcg PO DAILY RF: 0 acetaminophen 325 mg Tablet 650 mg PO Q4HR PRN (Reason: Fever/Mild Pain (1-3)) Qty: 14 RF: 0 oxycodone 5 mg capsule 5 mg PO Q6H PRN (Reason: pain) Qty: 20 RF: 0 ondansetron HCl [Zofran] 4 mg tablet 4 mg PO Q8H Qty: 20 RF: 0 Referrals: Eric Crocker MD [Non-Staff] -
[2020-10-18 03:15] VITALS: BP 118/91; PULSE 92; RESP 18; TEMP 36.5; O2SAT 99; BMI 25.7
--- NOTE | 2020-10-18 03:15 | DI.US.S_ITS ---
PROCEDURE: US RENAL COMPLETE INDICATIONS: FLANK PAIN TECHNIQUE: Real-time scanning was performed of the kidneys and bladder, with image documentation. COMPARISON: None. FINDINGS: Kidneys: Kidneys are normal in size. Right kidney measures 11.6 cm long; left kidney measures 11.7 cm long. Right renal cortical thickness is 1.5 cm; left renal cortical thickness is 1.1 cm. Renal cortical echotexture is normal. No hydronephrosis or nephrolithiasis. No suspicious solid mass lesions. Bladder: Pre-void bladder volume is 0 mL. The patient voided prior to image acquisition. Pre-void images demonstrate no intraluminal masses or stones. Miscellaneous: No free pelvic fluid. IMPRESSION: Normal renal sonogram. Dictated by: Kae Linton MD, PhD on 10/18/2020 at 8:17 Approved by: Kae Linton MD, PhD on 10/18/2020 at 8:18
--- NOTE | 2020-10-18 03:36 | DI.US.S_ITS ---
PROCEDURE: US OB LIMITED INDICATIONS: PAIN OUTSIDE/PRIOR DATING DATA: Last menstrual period (LMP): Not known. LMP-based estimated date of delivery ([place]): Not applicable. First dating scan (date and location): August 20, 2020. Estimated date of delivery ([place]) from first dating scan: April 07, 2021. TECHNIQUE: Real-time scanning was performed of the fetus, with image documentation. Endovaginal scanning: Performed COMPARISON: None. FINDINGS: A single living intrauterine gestation is present. Presentation: Breech Placenta: Placental position is anterior, without previa. Amniotic fluid index: 10.2 cm, normal range is 5-24 cm. heart rate: 135 beats per minute. Maternal cervical canal: Not evaluated. Estimated gestational age from initial scan: 15 weeks 4 days. IMPRESSION: 1. Single living intrauterine gestation. 2. No sonographic evidence of placental abruption. Dictated by: Kae Linton MD, PhD on 10/18/2020 at 8:20 Approved by: Kae Linton MD, PhD on 10/18/2020 at 8:21
[2020-10-18] MEDS: SODIUM CHLORIDE 0.9% 1,000 ML 125 ML IV (03:38)
[2020-10-18 03:40] LABS: Add Manual Diff / Slide Review NO; Basophils Absolute Auto 0 /uL (0-100); Basophils Percent Auto 0.3 % (0-2); Eosinophils Absolute Auto 100 /uL (0-450); Eosinophils Percent Auto 1.3 % (2-4); Hematocrit 39.1 % (36-46); Hemoglobin 13.1 g/dL (12.0-16.0); Lymphocytes Absolute Auto 2200 /uL (1100-4500); Mean Corpuscular HGB Conc 33.6 % (30-36); Mean Corpuscular Hemoglobin 30.7 PG (26-34); Mean Corpuscular Volume 91.2 fL (80-100); Monocytes Absolute Auto 400 /uL (0-900); Monocytes Percent Auto 5.3 % (3-14); Neutrophils Absolute Auto 4000 /uL (1500-7000); Neutrophils Percent Auto 60.1 % (50-75); Platelet Count 199 X10^3/uL (150-400); Red Blood Cell Count 4.28 X10^6/uL (4.0-5.2); Red Cell Distribution Width 13.1 % (11.6-14.8); White Blood Cell Count 6.7 X10^3/uL (4.5-11.0)
[2020-10-18 03:52] LABS: Alanine Aminotransferase 11 IU/L (<35); Albumin 4.2 g/dL (3.5-5.0); Albumin Globulin Ratio 1.4 (1.0-2.8); Alkaline Phosphatase 28 U/L (38-126); Aspartate Aminotransferase 21 IU/L (14-36); BUN Creatinine Ratio 12.7 (6-22); Bilirubin Total 0.2 mg/dL (0.2-1.3); Blood Urea Nitrogen 7 mg/dL (7-17); Calcium 9.1 mg/dL (8.4-10.2); Carbon Dioxide 24 mmol/L (22-32); Chloride 106 mmol/L (98-107); Estimated Glomerular Filt Rate > 60.0 mL/min (>60); Glucose 88 mg/dL (70-100); HEMOLYSIS < 15 (0-50); Lipase 58 U/L (23-300); Potassium 3.9 mmol/L (3.4-5.1); Sodium 136 mmol/L (137-145); Total Protein 7.2 g/dL (6.3-8.2)
[2020-10-18 04:32] LABS: UR Morphine/Opiate cutoff 300 Positive (Negative); Ur Creatinine 20 (Normal); Ur Specific Gravity 1.015 (Normal); Urine Amphetamines Negative (Negative); Urine Barbiturates Negative (Negative); Urine Benzodiazepines Negative (Negative); Urine Cocaine Negative (Negative); Urine MDMA Negative (Negative); Urine Methadone Negative (Negative); Urine Methamphetamines Negative (Negative); Urine Oxycodone Negative (Negative); Urine Phencyclidine Negative (Negative); Urine Tetrahydrocannabinol Negative (Negative); Urine Tricyclic Antidepressant Negative (Negative); Urine pH 5 (Normal)
--- NOTE | 2020-10-18 04:36 | PC.NURSE ---
Patient assisted to undress in preparation for pelvic exam; warm blankets provided.
[2020-10-18 05:39] VITALS: BP 113/65; PULSE 80; RESP 18; TEMP 36.9; O2SAT 98
--- NOTE | 2020-10-18 16:04 | PM.CN ---
History of Present Illness Consult details Date Patient Seen: 10/18/20 Time Patient Seen: 04:30 Chief complaint: pain in back and sides Reason for consult: pain of unknown etiology in 16 week Requesting provider: Luis Corcoran Narrative: Patient has presented multiple times to multiple ERs c/o increasingly severe pelvic, flank and back pain. Meds Home Medications and Allergies Home Medications Medication Instructions Recorded Confirmed Type oxycodone-acetaminophen [Percocet] 1 tab PO Q6H PRN #14 tab 02/27/20 02/29/20 Rx levothyroxine 100 mcg PO DAILY 02/29/20 02/29/20 History acetaminophen 650 mg PO Q4HR PRN #14 tab 03/02/20 Rx ondansetron HCl [Zofran] 4 mg PO Q8H #20 tab 03/02/20 Rx oxycodone 5 mg PO Q6H PRN #20 cap 03/02/20 Rx ondansetron 4 mg PO Q8H PRN #10 tab 09/25/20 Rx oxycodone-acetaminophen [Percocet] 1 tab PO Q6H PRN #10 tab 09/25/20 Rx Allergies Allergy/AdvReac Type Severity Reaction Status Date / Time No Known Drug Allergies Allergy Verified 03/01/20 15:57 Review of Systems Review of Systems Narrative: Patient , 1 csection and 2 successful VBACs, with increasing abdominal pain/ back pain/ flank pain at 16 week gestation. Patient has been seen multiple times this at multiple ERs with extensive w/u labs, MRI, US without any obvious cause. Patient has had emesis she believes due to the pain rather than GI upset. She denies fevers. The pain feels better when she is up rather than laying or sitting. She states the pain is sometimes dull but came in tonight because of the pain getting much more severe. Pt states she had a similar pain in February 2020 when she was 5 weeks and was taken to the OR where nothing was found she later miscarried that . After surgery her pain improved. Notes from the surgery all normal except 1 small omental adhesion to the anterior abdominal wall was lysed. Patient has been seeing a pelvic floor physical therapist. She is wearing a support belt. Exam Vital Signs (past 8 hours): Oxygen Delivery Method Room Air Narrative Exam Narrative: Patients abdomen is soft with tenderness in the lower abdomen, particularly suprapubic. Pelvic exam performed. The uterus feels appropriately sized for 16 weeks and the uterus is mobile, not encarcerated in the pelvis. The patients pelvic floor muscles are very tender. Objective Labs Result Diagrams: 10/18/20 03:30 10/18/20 03:30 Labs: Laboratory Results - last 24 hr 10/18/20 10/18/20 10/18/20 03:20 03:30 03:30 WBC 6.7 RBC 4.28 Hgb 13.1 Hct 39.1 MCV 91.2 MCH 30.7 MCHC 33.6 RDW 13.1 Plt Count 199 Neut % (Auto) 60.1 Lymph % (Auto) 33.0 [place] % (Auto) 5.3 Eos % (Auto) 1.3 L Baso % (Auto) 0.3 Neut # (Auto) 4000 Lymph # (Auto) 2200 [place] # (Auto) 400 Eos # (Auto) 100 Baso # (Auto) 0 Sodium 136 L Potassium 3.9 Chloride 106 Carbon Dioxide 24 BUN 7 Creatinine 0.55 Estimated GFR > 60.0 BUN/Creatinine Ratio 12.7 Glucose 88 Calcium 9.1 Total Bilirubin 0.2 AST 21 ALT 11 Alkaline Phosphatase 28 L Total Protein 7.2 Albumin 4.2 Globulin 3.0 Albumin/Globulin Ratio 1.4 Lipase 58 U Opiates 300ng/mL cut Positive H Ur Oxycodone Screen Negative Urine Methadone Screen Negative Ur Barbiturates Screen Negative U Tricyclic Antidepress Negative Ur Phencyclidine Scrn Negative Ur Amphetamines Screen Negative U Methamphetamines Scrn Negative Ur MDMA Scrn (Ecstasy) Negative U Benzodiazepines Scrn Negative Urine Cocaine Screen Negative U Marijuana (THC) Screen Negative Assessment & Plan Assessment and plan (1) Pelvic pain affecting : Qualifiers: Trimester: second trimester Qualified Code(s): O26.892 - Other specified related conditions, second trimester; R10.2 - Pelvic and perineal pain Status: Acute (2) 16 weeks gestation of : Status: Acute (3) Pelvic floor dysfunction in female: Status: Acute Assessment & Plan narrative: I believe the majority of the patients pain is due to weak pelvic floor muscles. Patient is already started on PT. I do not feel there is any need to hospitalize or do surgery on this patient unless there are any other changes.
--- NOTE | 2020-11-09 23:07 | PC.NURSE ---
Late entry: Normal saline infusion stopped at 0530 10/18/20; 250mls infused prior to stopping infusion.
== END 2020-10-18 05:15 | disposition home or self-care (01) ==
PROVIDERS: Emergency Provider Emergency Medicine
DX: O26.892 Other specified pregnancy related conditions, second trimester (principal); R10.2 Pelvic and perineal pain; Z3A.16 16 weeks gestation of pregnancy; M62.89 Other specified disorders of muscle
CPT/HCPCS: 36415; 76770; 76815; 80053; 80305; 81003; 83690; 85025; 96360; 96361; 99282; 99284